=== PATIENT | female | born 1950 ===

== ENCOUNTER 2017-11-24 20:54 | Inpatient (IN) | payer MEDICARE, OTHER ==
[~2017-11-24] VITALS: Ht 149.9 cm; Wt 83.6 kg
--- NOTE | 2017-11-24 21:15 | NUR ---
RECEIVED PATIENT VIA GURNEY. UPON ARRIVAL TO FLOOR, PATIENT IS CRYING AND UPSET DUE TO THE DELAY OF ARRIVAL TO THE HOSPITAL. DAUGHTER IS PRESENT AT BEDSIDE. PATIENT IS A/O X4. KOSOVAN/FARSI SPEAKING ONLY AND IS ABLE TO MAKE SIMPLE NEEDS KNOWN, BUT REQUIRES PYROTECHNICS PRESS TENDER FOR DETAILED INFORMATION. DENIES PAIN OR DISCOMFORT. PLACED ON O2 2L NC SATING 99%. NO RESP. DISTRESS NOTED. DENIES ANY SOB AT THIS TIME, BUT DOES TEND TO BECOME SOB WITH EXCESSIVE ACTIVITY. BP 103/35. WILL RECHECK AND CONTINUE TO MONITOR. ALL OTHER VSS. ORIENTED PATIENT TO ROOM AND CALL LIGHT. CALL LIGHT IN REACH. ALL NEEDS ATTENDED, WILL CONTINUE TO MONITOR AND ASSESS.
[2017-11-24 21:30] VITALS: BP 103/35
[2017-11-24] MEDS ORDERED: LISI2.5T2 PO (21:41)
[2017-11-24] MEDS ORDERED: BISA-79 RC (21:41)
[2017-11-24] MEDS ORDERED: GABA-532 PO (21:41)
[2017-11-24] MEDS ORDERED: LIDO30AD10 TD (21:41)
[2017-11-24] MEDS ORDERED: METF10004 PO (21:41)
[2017-11-24] MEDS ORDERED: PRED20TA PO (21:41)
[2017-11-24] MEDS ORDERED: ZOLP5TAB2 PO (21:41)
[2017-11-24] MEDS ORDERED: LACT1CAP57 PO (21:41)
[2017-11-24] MEDS ORDERED: SIMV20TA6 PO (21:41)
[2017-11-24] MEDS ORDERED: SUCR1TAB PO (21:41)
[2017-11-24] MEDS ORDERED: SENN1TAB33 PO (21:41)
[2017-11-24] MEDS ORDERED: INSU100V7 SQ (21:41)
[2017-11-24] MEDS ORDERED: PANT40TA2 PO (21:41)
[2017-11-24] MEDS ORDERED: LEVO500T90 PO (21:41)
[2017-11-24] MEDS ORDERED: CARV3.122 PO (21:41)
[2017-11-24] MEDS ORDERED: FERR325T28 PO (21:41)
[2017-11-24] MEDS ORDERED: ACET-2154 PO (21:41)
[2017-11-24] MEDS ORDERED: Z GUARD REMEDY PASTE 57 GM TUBE TOP PRN (22:00)
[2017-11-24] MEDS ORDERED: DEXTROSE 50% 50 ML DISP.SYRIN IV PRN (22:30)
[2017-11-24] MEDS: BLOOD SUGAR DIAGNOSTIC 1 EACH STRIP VI SCH ×2 (22:30→23:38)
--- NOTE | 2017-11-24 22:30 | NUR ---
PATIENTS BLOOD SUGAR, 164. PATIENT REFUSED INSULIN TONIGHT, STATING SHE HAS NOT EATEN MUCH TODAY AND DOES NOT WANT HER SUGAR TO DROP. WILL CONTINUE TO MONITOR.
[2017-11-24] MEDS: INSULIN REGULAR, HUMAN 300 UNIT/3 ML VIAL SQ PRN (22:37)
[2017-11-24] MEDS ORDERED: BISACODYL 5 MG TABLET.DR PO PRN (22:45)
[2017-11-24] MEDS ORDERED: ACETAMINOPHEN 325 MG TABLET PO ONE (23:00)
[2017-11-24] MEDS: ZOLPIDEM 5 MG TABLET PO PRN (23:39)
--- NOTE | 2017-11-24 23:40 | NUR ---
PATIENT AWAKE IN BED. C/O INSOMNIA. PATIENT GIVEN AMBIEN 5MG PO PRN FOR SLEEP. RECHECKED BLOOD SUGAR, REQUESTED PER PATIENT ANS RECEIVED 159. ALSO RECHECKED PATIENTS BLOOD PRESSURE 140/50. ALL OTHER VSS. PATIENT MADE COMFORTABLE IN BED. BED ALARM ON. CALL LIGHT IN REACH. ALL NEEDS ATTENDED. WILL CONTINUE TO MONITOR.
[2017-11-24 23:44] VITALS: BP 140/50
--- NOTE | 2017-11-25 01:00 | NUR ---
PATIENT ASLEEP IN BED. SLEEPING WELL. BED ALARM ON. ALL NEEDS ATTENDED. WILL CONTINUE TO MONITOR.
--- NOTE | 2017-11-25 05:49 | NUR ---
PATIENT ASLEEP IN BED. EASILY AROUSABLE. SLEPT WELL THROUGHOUT THE NIGHT. NO C/O PAIN AT THIS TIME. CALL LIGHT IN REACH. ALL NEEDS ATTENDED. WILL CONTINUE TO MONITOR.
[2017-11-25] MEDS: BLOOD SUGAR DIAGNOSTIC 1 EACH STRIP VI SCH ×4 (06:37→20:46)
--- NOTE | 2017-11-25 07:22 | NUR ---
Patient noted sitting up in chair reading a newspaper, no complaints of pain at this time, no signs of distress noted, call light in reach, all needs met at this time
[2017-11-25] MEDS: LACTOBACILLUS RHAMNOSUS GG 1 EACH CAPSULE PO SCH ×2 (08:09→16:49)
[2017-11-25] MEDS: METFORMIN HCL 500 MG TABLET PO SCH ×2 (08:10→17:00)
[2017-11-25] MEDS: ACETAMINOPHEN 325 MG TABLET PO SCH ×3 (08:10→16:49)
[2017-11-25] MEDS: SUCRALFATE 1 G TABLET PO SCH ×4 (08:10→20:46)
[2017-11-25] MEDS: predniSONE 20 MG TABLET PO SCH (08:10)
[2017-11-25] MEDS: PANTOPRAZOLE SODIUM 40 MG TABLET.DR PO SCH ×2 (08:10→16:49)
[2017-11-25] MEDS: FERROUS SULFATE 325 MG TABEC PO SCH (08:10)
[2017-11-25] MEDS: LIDOCAINE 5% PATCH TD SCH (08:13)
[2017-11-25] MEDS: GABAPENTIN 100 MG CAPSULE PO SCH ×3 (08:13→16:49)
[2017-11-25] MEDS: CARVEDILOL 3.125 MG TABLET PO SCH ×2 (08:14→16:57)
[2017-11-25] MEDS: LISINOPRIL 5 MG TABLET PO SCH (08:14)
[2017-11-25] MEDS: INSULIN REGULAR, HUMAN 300 UNIT/3 ML VIAL SQ PRN ×4 (08:23→20:47)
[2017-11-25 08:42] VITALS: BP 112/32
[2017-11-25] MEDS: LEVOFLOXACIN 500 MG TABLET PO SCH (12:08)
[2017-11-25 15:49] VITALS: BP 108/48
--- NOTE | 2017-11-25 18:43 | NUR ---
Patient continues on Levaquin with no signs or symptoms of adverse reaction noted, all needs met, no signs of distress this shift
--- NOTE | 2017-11-25 19:45 | NUR ---
RECEIVED PATIENT AWAKE IN BED WITH DAUGHTER AT BEDSIDE. PATIENT IS A/O X4. NORWEGIAN/FARSI SPEAKING BUT ABLE TO MAKE NEEDS KNOWN. DENIES PAIN. ON O2 2L NC SATING 99%. DENIES SOB. CALL LIGHT IN REACH. ALL NEEDS ATTENDED. WILL CONTINUE TO MONITOR.
[2017-11-25 20:41] VITALS: BP 97/45
[2017-11-25] MEDS: SIMVASTATIN 20 MG TABLET PO SCH (20:46)
[2017-11-25] MEDS: ZOLPIDEM 5 MG TABLET PO PRN (20:47)
[2017-11-25] MEDS: SENNOSIDES/DOCUSATE SODIUM TABLET PO SCH (20:53)
[2017-11-25] MEDS ORDERED: INSULIN GLARGINE,HUM 300 UNITS/3 ML CARTRIDGE SQ SCH (21:00)
[2017-11-26 05:30] VITALS: BP 118/60
[2017-11-26] MEDS: BLOOD SUGAR DIAGNOSTIC 1 EACH STRIP VI SCH ×4 (06:35→21:00)
--- NOTE | 2017-11-26 07:14 | NUR ---
Patient noted sleeping in chair, call light in reach, walker in reach, no facial cues of pain noted, no signs of distress noted, all needs met at this time.
[2017-11-26 08:01] LABS: BASOPHILS # (AUTO) 0.1 K/uL (0.0-8.0); BASOPHILS % (AUTO) 0.5 % (0.0-2.0); EOSINOPHILS # (AUTO) 0.1 K/uL (0.0-0.7); EOSINOPHILS % (AUTO) 0.9 % (0.0-7.0); HEMATOCRIT 29.6 % (31.2-41.9); LYMPHOCYTES % (AUTO) 15.8 % (20.5-51.5); MEAN CORPUSCULAR HEMOGLOBIN 28.8 uug (24.7-32.8); MEAN CORPUSCULAR HGB CONC 34 g/dL (32.3-35.6); MONOCYTES # (AUTO) 1.1 K/uL (2.0-10.0); MONOCYTES % (AUTO) 8.6 % (0.0-11.0); NEUTROPHILS # (AUTO) 9.4 K/uL (1.8-8.9); NEUTROPHILS % (AUTO) 74.2 % (38.5-71.5); PLATELET COUNT (AUTO) 213 K/uL (179-408); RED BLOOD CELL COUNT(AUTO) 3.49 MIL/uL (3.63-4.92); WHITE BLOOD COUNT (AUTO) 12.7 K/uL (3.8-11.8)
[2017-11-26] MEDS: METFORMIN HCL 500 MG TABLET PO SCH ×2 (08:14→17:07)
[2017-11-26] MEDS: ACETAMINOPHEN 325 MG TABLET PO SCH ×3 (08:14→17:07)
[2017-11-26] MEDS: FERROUS SULFATE 325 MG TABEC PO SCH (08:14)
[2017-11-26] MEDS: LACTOBACILLUS RHAMNOSUS GG 1 EACH CAPSULE PO SCH ×2 (08:14→17:07)
[2017-11-26] MEDS: PANTOPRAZOLE SODIUM 40 MG TABLET.DR PO SCH ×2 (08:14→17:07)
[2017-11-26] MEDS: SUCRALFATE 1 G TABLET PO SCH ×4 (08:14→20:53)
[2017-11-26] MEDS: GABAPENTIN 100 MG CAPSULE PO SCH ×3 (08:15→17:07)
[2017-11-26] MEDS: predniSONE 20 MG TABLET PO SCH (08:15)
[2017-11-26] MEDS: LIDOCAINE 5% PATCH TD SCH (08:15)
[2017-11-26] MEDS: LISINOPRIL 5 MG TABLET PO SCH (08:16)
[2017-11-26] MEDS: CARVEDILOL 3.125 MG TABLET PO SCH ×2 (08:16→17:10)
[2017-11-26] MEDS: INSULIN REGULAR, HUMAN 300 UNIT/3 ML VIAL SQ PRN ×3 (08:21→17:21)
[2017-11-26 08:29] VITALS: BP 126/61
[2017-11-26 08:31] LABS: THYROID STIMULATING HORMONE 1.003 mIU/mL (0.358-3.740)
[2017-11-26 08:50] LABS: BILIRUBIN,TOTAL 0.6 mg/dL (0.2-1.0); CREATININE 0.7 mg/dL (0.6-1.3); MAGNESIUM 1.3 mg/dL (1.8-2.4); PHOSPHOROUS 1.7 mg/dL (2.5-4.9); POTASSIUM 3.7 mmol/L (3.5-5.1); TOTAL PROTEIN, SERUM 5.7 g/dL (6.4-8.2)
[2017-11-26] MEDS: LEVOFLOXACIN 500 MG TABLET PO SCH (12:13)
[2017-11-26] MEDS ORDERED: NEUTRA PHOS PACKET PO ONE (15:15)
[2017-11-26] MEDS ORDERED: LOPERAMIDE HCL 2 MG CAPSULE PO PRN (18:45)
--- NOTE | 2017-11-26 19:26 | NUR ---
PATIENT COMPLAINTS OF LOOSE STOOL, MD CABRERA NOTIFIED WITH ORDERS FOR IMODIUM 2 MG Q4 PRN
--- NOTE | 2017-11-26 19:30 | NUR ---
Patient received at bed awake, alert, and oriented x4. No acute distress or SOB was noted. Able to make needs known. No complain of pain. Call light and personal belonging within reach. continue to monitor.
[2017-11-26 20:21] VITALS: BP 120/67
[2017-11-26] MEDS: SENNOSIDES/DOCUSATE SODIUM TABLET PO SCH (20:53)
[2017-11-26] MEDS: SIMVASTATIN 20 MG TABLET PO SCH (20:54)
[2017-11-26] MEDS: INSULIN GLARGINE,HUM 300 UNITS/3 ML CARTRIDGE SQ SCH (20:58)
--- NOTE | 2017-11-26 21:00 | NUR ---
Patient complained of diarrhea, Imodium 2GM was given. Due medication given as ordered, Accuchek was done, BS was 154, insulin coverage done. Patient requested for sleep pill, Zolpidem 5 mg was given as ordered.
[2017-11-26] MEDS: ZOLPIDEM 5 MG TABLET PO PRN (21:13)
--- NOTE | 2017-11-27 05:41 | NUR ---
End of shift note patient was awake and alert until 4am that be able to sleep without difficulty. No acute distress or SOB throughout the shift. No change in LOC or mentation. Remained stable throughout the shift. Med given as ordered. All needs attended promptly. Call light and personal belongings within reach. Bed alarm and bed brake on for safety precaution. Will endorse accordingly to incoming shift for continuity of care.
[2017-11-27 06:12] VITALS: BP 112/52
[2017-11-27] MEDS: SUCRALFATE 1 G TABLET PO SCH ×4 (06:40→20:28)
[2017-11-27] MEDS: BLOOD SUGAR DIAGNOSTIC 1 EACH STRIP VI SCH ×4 (06:44→20:34)
--- NOTE | 2017-11-27 07:32 | NUR ---
PATIENT NOTED RESTING IN BED WITH EYES CLOSED, NO FACIAL CUES OF PAIN NOTED, NO SIGNS OF DISTRESS NOTED, CALL LIGHT IN REACH, BED LOCKED AND IN LOWEST POSITION, , X 2 BED RAILS, ALL NEEDS MET AT THIS TIME
[2017-11-27 07:35] VITALS: BP 122/52
[2017-11-27] MEDS: LACTOBACILLUS RHAMNOSUS GG 1 EACH CAPSULE PO SCH ×2 (08:18→17:04)
[2017-11-27] MEDS: predniSONE 20 MG TABLET PO SCH (08:20)
[2017-11-27] MEDS: ACETAMINOPHEN 325 MG TABLET PO SCH ×3 (08:20→17:04)
[2017-11-27] MEDS: METFORMIN HCL 500 MG TABLET PO SCH ×2 (08:20→17:04)
[2017-11-27] MEDS: CARVEDILOL 3.125 MG TABLET PO SCH ×2 (08:21→17:00)
[2017-11-27] MEDS: GABAPENTIN 100 MG CAPSULE PO SCH ×3 (08:22→17:04)
[2017-11-27] MEDS: FERROUS SULFATE 325 MG TABEC PO SCH (08:22)
[2017-11-27] MEDS: PANTOPRAZOLE SODIUM 40 MG TABLET.DR PO SCH ×2 (08:22→17:04)
[2017-11-27] MEDS: LIDOCAINE 5% PATCH TD SCH (08:24)
[2017-11-27] MEDS: LISINOPRIL 5 MG TABLET PO SCH (08:24)
[2017-11-27] MEDS: INSULIN REGULAR, HUMAN 300 UNIT/3 ML VIAL SQ PRN ×4 (08:25→20:33)
--- NOTE | 2017-11-27 11:41 | NUR ---
I agree Addendum: 11/27/17 at 1142 by PREET ORTIZ OT Amended: Links added.
--- NOTE | 2017-11-27 11:41 | NUR ---
I agree Addendum: 11/27/17 at 1141 by PREET ORTIZ OT Amended: Links added.
--- NOTE | 2017-11-27 11:42 | NUR ---
I agree Addendum: 11/27/17 at 1143 by PREET ORTIZ OT Amended: Links added.
[2017-11-27] MEDS: LEVOFLOXACIN 500 MG TABLET PO SCH (12:31)
[2017-11-27] MEDS: SENNOSIDES/DOCUSATE SODIUM TABLET PO SCH (20:26)
[2017-11-27] MEDS: SIMVASTATIN 20 MG TABLET PO SCH (20:28)
[2017-11-27] MEDS: INSULIN GLARGINE,HUM 300 UNITS/3 ML CARTRIDGE SQ SCH (20:30)
[2017-11-27 20:34] VITALS: BP 120/60
[2017-11-27] MEDS: ZOLPIDEM 5 MG TABLET PO PRN (20:42)
--- NOTE | 2017-11-27 21:39 | NUR ---
Patient received at bed awake, alert, and oriented x4. No acute distress or SOB was noted. Has O2 2 Lit through nasal canula. Able to make needs known. No complain of pain. Call light and personal belonging within reach. continue to monitor.
[2017-11-28] MEDS: SUCRALFATE 1 G TABLET PO SCH ×5 (06:09→21:13)
--- NOTE | 2017-11-28 06:25 | NUR ---
End of shift note patient was able to sleep without difficulty. No acute distress or SOB throughout the shift. No change in LOC or mentation. Remained stable throughout the shift. Med given as ordered. All needs attended promptly. Call light and personal belongings within reach. Bed alarm and bed brake on for safety precaution. Patient has pulmonary appointment for PET scan today. Will endorse accordingly to incoming shift for continuity of care.
[2017-11-28] MEDS: BLOOD SUGAR DIAGNOSTIC 1 EACH STRIP VI SCH ×4 (06:33→21:35)
[2017-11-28 08:00] VITALS: BP 108/57
[2017-11-28] MEDS: LACTOBACILLUS RHAMNOSUS GG 1 EACH CAPSULE PO SCH ×2 (08:58→17:02)
[2017-11-28] MEDS: METFORMIN HCL 500 MG TABLET PO SCH ×2 (08:58→17:06)
[2017-11-28] MEDS: GABAPENTIN 100 MG CAPSULE PO SCH ×3 (08:59→17:04)
[2017-11-28] MEDS: FERROUS SULFATE 325 MG TABEC PO SCH (08:59)
[2017-11-28] MEDS: ACETAMINOPHEN 325 MG TABLET PO SCH ×3 (08:59→17:02)
[2017-11-28] MEDS: LISINOPRIL 5 MG TABLET PO SCH (08:59)
[2017-11-28] MEDS: LIDOCAINE 5% PATCH TD SCH (09:00)
[2017-11-28] MEDS: CARVEDILOL 3.125 MG TABLET PO SCH ×2 (09:00→17:00)
[2017-11-28] MEDS: PANTOPRAZOLE SODIUM 40 MG TABLET.DR PO SCH ×2 (09:00→17:04)
[2017-11-28] MEDS: predniSONE 20 MG TABLET PO SCH (09:00)
[2017-11-28] MEDS: INSULIN REGULAR, HUMAN 300 UNIT/3 ML VIAL SQ PRN ×3 (11:59→21:24)
--- NOTE | 2017-11-28 13:29 | NUR ---
INTERDISCIPLINARY TEAM CONFERENCE
[2017-11-28 16:16] VITALS: BP 106/61
[2017-11-28 18:03] LABS: *BILIRUBIN,URIN NEGATIVE (NEGATIVE); *BLOOD, URINE NEGATIVE (NEGATIVE); *CLARITY,URINE CLEAR (CLEAR); *COLOR,URINE YELLOW (YELLOW); *KETONES,URINE NEGATIVE (NEGATIVE); *PROTEIN,URINE NEGATIVE (NEGATIVE); *UROBILINOGEN,URINE 0.2 E.U./dl (NORMAL); LEUKOCYTE ESTERASE ,URINE NEGATIVE (NEGATIVE); NITRITE, URINE NEGATIVE (NEGATIVE); UGLUCOSE NEGATIVE (NEGATIVE)
[2017-11-28 18:16] LABS: SQUAMOUS EPITHELIAL CELL,UR FEW /HPF (NONE SEEN); WBC,URINE 0-3 /HPF (0-3)
[2017-11-28 18:17] LABS: MUCUS,URINE FEW /LPF (0-FEW)
[2017-11-28 19:30] VITALS: BP_SYST 105; BP_SYST 137; BP_DIAS 45; BP_DIAS 68
[2017-11-28] MEDS: SIMVASTATIN 20 MG TABLET PO SCH (21:13)
[2017-11-28] MEDS: SENNOSIDES/DOCUSATE SODIUM TABLET PO SCH (21:14)
[2017-11-28] MEDS: INSULIN GLARGINE,HUM 300 UNITS/3 ML CARTRIDGE SQ SCH (21:34)
[2017-11-29] MEDS: SUCRALFATE 1 G TABLET PO SCH ×4 (06:34→20:46)
[2017-11-29] MEDS: BLOOD SUGAR DIAGNOSTIC 1 EACH STRIP VI SCH ×4 (06:37→20:50)
[2017-11-29 08:22] VITALS: BP 119/55
--- NOTE | 2017-11-29 09:21 | NUR ---
Received patient awake, sitting on the chair, alert and orientedx4. farsi speaking. able to verbalize needs. not in distress. no complaint of pain/discomfort. will continue monitor
[2017-11-29] MEDS: CARVEDILOL 3.125 MG TABLET PO SCH ×2 (09:49→16:23)
[2017-11-29] MEDS: predniSONE 20 MG TABLET PO SCH (09:51)
[2017-11-29] MEDS: GABAPENTIN 100 MG CAPSULE PO SCH ×3 (09:52→16:15)
[2017-11-29] MEDS: METFORMIN HCL 500 MG TABLET PO SCH ×2 (09:55→16:23)
[2017-11-29] MEDS: FERROUS SULFATE 325 MG TABEC PO SCH (09:56)
[2017-11-29] MEDS: LACTOBACILLUS RHAMNOSUS GG 1 EACH CAPSULE PO SCH ×2 (09:56→16:23)
[2017-11-29] MEDS: PANTOPRAZOLE SODIUM 40 MG TABLET.DR PO SCH ×2 (09:57→16:16)
[2017-11-29] MEDS: LIDOCAINE 5% PATCH TD SCH (09:59)
[2017-11-29] MEDS: LISINOPRIL 5 MG TABLET PO SCH (09:59)
[2017-11-29] MEDS: ACETAMINOPHEN 325 MG TABLET PO SCH ×3 (09:59→16:16)
[2017-11-29 15:52] VITALS: BP 110/52
[2017-11-29 19:30] VITALS: BP 115/57
--- NOTE | 2017-11-29 19:33 | NUR ---
ECG result dated 11/28/17 relayed to cardio electronic sensing equipment assembler with no new order. will continue monitor
[2017-11-29] MEDS: SIMVASTATIN 20 MG TABLET PO SCH (20:46)
[2017-11-29] MEDS: SENNOSIDES/DOCUSATE SODIUM TABLET PO SCH (20:46)
[2017-11-29] MEDS: INSULIN REGULAR, HUMAN 300 UNIT/3 ML VIAL SQ PRN (20:52)
[2017-11-29] MEDS: INSULIN GLARGINE,HUM 300 UNITS/3 ML CARTRIDGE SQ SCH (20:55)
--- NOTE | 2017-11-29 21:00 | NUR ---
PATIENT AWAKE ON BED, NO C/O OF PAIN OR ANY DISCOMFORT , USING O2 @ 2LPM VIA NC. BS CHECK DONE WITH RESULT 228. INSULIN ADMINISTERED ORDERED.
[2017-11-30] MEDS: BLOOD SUGAR DIAGNOSTIC 1 EACH STRIP VI SCH ×4 (06:35→20:56)
[2017-11-30] MEDS: SUCRALFATE 1 G TABLET PO SCH ×4 (06:35→20:53)
--- NOTE | 2017-11-30 06:44 | NUR ---
PATIENT INTERMITTENTLY SLEEPING, EASILY AROUSBLE TO VERBAL RESPONSE. NO SOB. USING O2 @ 2PM VIS NC . KEPT FOOT ELEVATED ON BED . BS CHECK DONE WITH THE RESULT 58. PATIENT RESPONSIVE AND A OX4. ORANGE JUICE GIVEN. WILL RECHECK LATER
[2017-11-30 06:48] LABS: BASOPHILS # (AUTO) 0.1 K/uL (0.0-8.0); BASOPHILS % (AUTO) 0.5 % (0.0-2.0); EOSINOPHILS # (AUTO) 0.1 K/uL (0.0-0.7); EOSINOPHILS % (AUTO) 0.9 % (0.0-7.0); HEMATOCRIT 30.6 % (31.2-41.9); HEMOGLOBIN 10.1 g/dL (10.9-14.3); LYMPHOCYTES # (AUTO) 3.1 K/uL (20.0-40.0); MEAN CORPUSCULAR HEMOGLOBIN 28.3 uug (24.7-32.8); MEAN CORPUSCULAR HGB CONC 33 g/dL (32.3-35.6); MEAN CORPUSCULAR VOLUME 85.3 fL (75.5-95.3); MONOCYTES # (AUTO) 0.8 K/uL (2.0-10.0); MONOCYTES % (AUTO) 7.1 % (0.0-11.0); NEUTROPHILS # (AUTO) 6.9 K/uL (1.8-8.9); NEUTROPHILS % (AUTO) 63.5 % (38.5-71.5); PLATELET COUNT (AUTO) 275 K/uL (179-408); RED BLOOD CELL COUNT(AUTO) 3.58 MIL/uL (3.63-4.92); WHITE BLOOD COUNT (AUTO) 10.9 K/uL (3.8-11.8)
[2017-11-30 06:58] VITALS: BP 107/51
[2017-11-30 06:58] LABS: BILIRUBIN,TOTAL 0.4 mg/dL (0.2-1.0); CREATININE 0.8 mg/dL (0.6-1.3); PHOSPHOROUS 1.7 mg/dL (2.5-4.9); POTASSIUM 3.8 mmol/L (3.5-5.1); TOTAL PROTEIN, SERUM 5.9 g/dL (6.4-8.2)
[2017-11-30 06:59] LABS: MAGNESIUM 1.2 mg/dL (1.8-2.4)
--- NOTE | 2017-11-30 07:01 | NUR ---
Received call from lab for critical result magnesium 1.2 . Will notify MD. Continue to monitor.
[2017-11-30 07:15] VITALS: BP 120/57
--- NOTE | 2017-11-30 07:20 | NUR ---
LEFT MESSAGE FOR DR. CABRERA REGARDING THE CRITICAL LAB VALUE MAGNESIUM 1.2.
--- NOTE | 2017-11-30 07:26 | NUR ---
RECHECKED BS WITH RESULT 97
--- NOTE | 2017-11-30 07:43 | NUR ---
Endorsed to day shift charge nurse about critical lab result. notified. Awaiting call back.
[2017-11-30] MEDS: PANTOPRAZOLE SODIUM 40 MG TABLET.DR PO SCH ×2 (08:29→17:22)
[2017-11-30] MEDS: GABAPENTIN 100 MG CAPSULE PO SCH ×3 (08:29→17:22)
[2017-11-30] MEDS: LACTOBACILLUS RHAMNOSUS GG 1 EACH CAPSULE PO SCH ×2 (08:29→17:22)
[2017-11-30] MEDS: FERROUS SULFATE 325 MG TABEC PO SCH (08:29)
[2017-11-30] MEDS: METFORMIN HCL 500 MG TABLET PO SCH ×2 (08:29→17:22)
[2017-11-30] MEDS: CARVEDILOL 3.125 MG TABLET PO SCH ×2 (08:29→17:00)
[2017-11-30] MEDS: ACETAMINOPHEN 325 MG TABLET PO SCH ×3 (08:29→17:22)
[2017-11-30] MEDS: predniSONE 20 MG TABLET PO SCH (08:30)
[2017-11-30] MEDS: LIDOCAINE 5% PATCH TD SCH (08:30)
[2017-11-30] MEDS: LISINOPRIL 5 MG TABLET PO SCH (08:31)
--- NOTE | 2017-11-30 09:35 | NUR ---
Patient noted sitting up on side of the bed, no complaints of pain at this time, no signs of distress, call light in reach, bed locked and in lowest position, all needs met at this time
[2017-11-30] MEDS: INSULIN REGULAR, HUMAN 300 UNIT/3 ML VIAL SQ PRN ×2 (12:03→17:26)
[2017-11-30] MEDS ORDERED: MAGNESIUM OXIDE 400 MG TABLET PO ONE (13:00)
[2017-11-30] MEDS ORDERED: NEUTRA PHOS PACKET PO ONE (15:30)
[2017-11-30 16:14] VITALS: BP 122/53
[2017-11-30 19:30] VITALS: BP 117/82
[2017-11-30] MEDS ORDERED: HYDROCORTISONE 1% CREAM 30 GM TUBE TP ONE (19:45)
--- NOTE | 2017-11-30 20:45 | NUR ---
Patient reported feeling pain underneath left breast. Per patient felt like "stinging, burning". Upon assessment noted with under-breast rash. Also C/O left foot itching. Upon assessment of left foot, no noted redness or irritation. Dr. Jimenez in to see patient, made aware with new orders of Hydrocortisone 1% topical cream BID. Orders noted and carried out. Pictures taken and placed in chart. Safety maintained. Call light within reach. Will continue to monitor.
[2017-11-30] MEDS: SIMVASTATIN 20 MG TABLET PO SCH (20:54)
[2017-11-30] MEDS: INSULIN GLARGINE,HUM 300 UNITS/3 ML CARTRIDGE SQ SCH (20:54)
[2017-11-30] MEDS: SENNOSIDES/DOCUSATE SODIUM TABLET PO SCH (20:54)
[2017-12-01] MEDS: BLOOD SUGAR DIAGNOSTIC 1 EACH STRIP VI SCH ×4 (06:06→20:24)
[2017-12-01] MEDS: SUCRALFATE 1 G TABLET PO SCH ×4 (06:57→20:16)
[2017-12-01 08:02] LABS: BASOPHILS # (AUTO) 0.1 K/uL (0.0-8.0); BASOPHILS % (AUTO) 0.7 % (0.0-2.0); EOSINOPHILS # (AUTO) 0.1 K/uL (0.0-0.7); EOSINOPHILS % (AUTO) 0.7 % (0.0-7.0); HEMATOCRIT 29.1 % (31.2-41.9); HEMOGLOBIN 9.7 g/dL (10.9-14.3); LYMPHOCYTES # (AUTO) 1.9 K/uL (20.0-40.0); MEAN CORPUSCULAR HEMOGLOBIN 28.4 uug (24.7-32.8); MEAN CORPUSCULAR HGB CONC 33 g/dL (32.3-35.6); MONOCYTES # (AUTO) 0.7 K/uL (2.0-10.0); MONOCYTES % (AUTO) 7.1 % (0.0-11.0); NEUTROPHILS # (AUTO) 6.5 K/uL (1.8-8.9); NEUTROPHILS % (AUTO) 70.5 % (38.5-71.5); PLATELET COUNT (AUTO) 237 K/uL (179-408); RED BLOOD CELL COUNT(AUTO) 3.42 MIL/uL (3.63-4.92); WHITE BLOOD COUNT (AUTO) 9.2 K/uL (3.8-11.8)
[2017-12-01] MEDS: FERROUS SULFATE 325 MG TABEC PO SCH (08:02)
[2017-12-01] MEDS: GABAPENTIN 100 MG CAPSULE PO SCH ×3 (08:02→16:50)
[2017-12-01] MEDS: ACETAMINOPHEN 325 MG TABLET PO SCH ×3 (08:02→16:51)
[2017-12-01] MEDS: predniSONE 20 MG TABLET PO SCH (08:02)
[2017-12-01] MEDS: PANTOPRAZOLE SODIUM 40 MG TABLET.DR PO SCH ×2 (08:02→16:51)
[2017-12-01] MEDS: METFORMIN HCL 500 MG TABLET PO SCH ×2 (08:03→16:51)
[2017-12-01] MEDS: LISINOPRIL 5 MG TABLET PO SCH (08:03)
[2017-12-01] MEDS: CARVEDILOL 3.125 MG TABLET PO SCH ×2 (08:04→16:52)
[2017-12-01] MEDS: LIDOCAINE 5% PATCH TD SCH (08:04)
[2017-12-01] MEDS: HYDROCORTISONE 1% CREAM 30 GM TUBE TP SCH ×2 (08:05→16:52)
[2017-12-01] MEDS: LACTOBACILLUS RHAMNOSUS GG 1 EACH CAPSULE PO SCH ×2 (08:06→16:50)
[2017-12-01 08:27] LABS: CREATININE 0.7 mg/dL (0.6-1.3); MAGNESIUM 1.3 mg/dL (1.8-2.4); PHOSPHOROUS 1.9 mg/dL (2.5-4.9); POTASSIUM 4.1 mmol/L (3.5-5.1)
[2017-12-01 08:30] VITALS: BP 121/74
[2017-12-01] MEDS: INSULIN REGULAR, HUMAN 300 UNIT/3 ML VIAL SQ PRN ×2 (12:07→20:29)
[2017-12-01] MEDS ORDERED: MAGNESIUM OXIDE 400 MG TABLET PO ONE (14:00)
[2017-12-01] MEDS ORDERED: NEUTRA PHOS PACKET PO ONE (17:00)
[2017-12-01 19:30] VITALS: BP 117/51
--- NOTE | 2017-12-01 19:30 | NUR ---
PT IN ROOM ALERT AWAKE IN WITH IN NO ACUTE DISTRESS. STATES SHE HAS SOME PERIODS OF SOB UPON EXERTION. DAUGHTER AT BEDSIDE AWARE. MAINTAINING OXYGEN AT 2L/MIN. AWAITING ORDERS FROM DR ARANDA FOR ROUTINE HS ORDERS. WILL CONTINUE TO MONITOR. ENCOURAGED DEEP BREATHING EXERCISES AND TO USE CALL LIGHT FOR ASSISTANCE WHEN NEEDED.
[2017-12-01] MEDS: SENNOSIDES/DOCUSATE SODIUM TABLET PO SCH (20:17)
[2017-12-01] MEDS: SIMVASTATIN 20 MG TABLET PO SCH (20:17)
[2017-12-01] MEDS: INSULIN GLARGINE,HUM 300 UNITS/3 ML CARTRIDGE SQ SCH (20:30)
[2017-12-01] MEDS ORDERED: DOXEPIN 10 MG CAPSULE PO SCH (21:00)
--- NOTE | 2017-12-01 21:15 | NUR ---
PT NOTED WITH SOME ANXIETY AND C/O PERIODS OF DYSPNEA BUT NO CHEST PAIN. PT ENCOURAGED DEEP BREATHING AND TO SIT UP IN CHAIR. OXYGEN NOTED 98% VIA N/C WITH 2L/MIN. DR UGALDE MADE AWARE. CXR STAT WAS ORDERED. NOTED AND CARRIED OUT. DAUGHTER REGINA AWARE.
[2017-12-02] MEDS ORDERED: TRAZODONE 100 MG TABLET PO ONE
--- NOTE | 2017-12-02 | NUR ---
PT IN ROOM ALERT AWAKE WITH OXYGEN SAT MAINTAINING 97% VIA 2L/MIN N/C. WILL CONTINUE TO MONITOR. LEE OFFERED D/T PT C/O NO SLEEP.
[2017-12-02] MEDS: ZOLPIDEM 5 MG TABLET PO PRN ×2 (00:30→20:55)
[2017-12-02] MEDS: OXYCODONE/APAP 5-325 MG TABLET PO PRN ×3 (04:02→17:21)
[2017-12-02] MEDS: SUCRALFATE 1 G TABLET PO SCH ×4 (06:30→20:56)
--- NOTE | 2017-12-02 06:30 | NUR ---
PT ABLE TO SLEEP LATE 0400 AFTER RECEIVING PERCOCET D/T PAIN TO LEFT FOOT AND LOW BACK. NO NO S/S OF RESP DISTRESS. DR UGALDE IS AWARE OF RECENT CXR RESULTS. PT REMAIN SEATED SLEEPING IN CHAIR AT THIS TIME. WILL CONTINUE TO MONITOR.
[2017-12-02] MEDS: BLOOD SUGAR DIAGNOSTIC 1 EACH STRIP VI SCH ×4 (06:31→20:58)
[2017-12-02 08:38] VITALS: BP 102/52
[2017-12-02] MEDS: LACTOBACILLUS RHAMNOSUS GG 1 EACH CAPSULE PO SCH ×2 (08:54→17:16)
[2017-12-02] MEDS: GABAPENTIN 100 MG CAPSULE PO SCH ×3 (08:54→17:19)
[2017-12-02] MEDS: FERROUS SULFATE 325 MG TABEC PO SCH (08:54)
[2017-12-02] MEDS: METFORMIN HCL 500 MG TABLET PO SCH ×2 (08:54→17:18)
[2017-12-02] MEDS: CARVEDILOL 3.125 MG TABLET PO SCH ×2 (08:57→17:19)
[2017-12-02] MEDS: predniSONE 20 MG TABLET PO SCH (08:58)
[2017-12-02] MEDS: ACETAMINOPHEN 325 MG TABLET PO SCH ×3 (09:00→17:21)
[2017-12-02] MEDS: LIDOCAINE 5% PATCH TD SCH (09:00)
[2017-12-02] MEDS: PANTOPRAZOLE SODIUM 40 MG TABLET.DR PO SCH ×2 (09:01→17:19)
[2017-12-02] MEDS: HYDROCORTISONE 1% CREAM 30 GM TUBE TP SCH ×2 (09:01→17:22)
[2017-12-02] MEDS: LISINOPRIL 5 MG TABLET PO SCH (09:02)
--- NOTE | 2017-12-02 11:39 | NUR ---
WOUND CARE CONSULT: PT PRESENTS WITH RED RASH TO BREASTFOLDS, GROIN AND INNER BUTTOCKS AREAS, PRESENT ON ADMISSION. RECOMMENDATIONS MADE AND DISCUSSED WITH NURSING STAFF. PT IS INDEPENDENT WITH BED MOBILITY AND CONTINENT. WILL SEE PRN. CURRENT PATRICIA SCORE IS 19. MD IN AGREEMENT WITH PLAN OF CARE. Addendum: 12/02/17 at 1140 by RADHA RETANA RN Amended: Links added.
[2017-12-02] MEDS: INSULIN REGULAR, HUMAN 300 UNIT/3 ML VIAL SQ PRN ×2 (12:12→20:56)
--- NOTE | 2017-12-02 12:28 | NUR ---
I agree Addendum: 12/02/17 at 1229 by PREET ORTIZ OT Amended: Links added.
--- NOTE | 2017-12-02 12:28 | NUR ---
I agree Addendum: 12/02/17 at 1228 by PREET ORTIZ OT Amended: Links added.
[2017-12-02] MEDS: CLOTRIMAZOLE 1% CREAM 30 GM TUBE TOP SCH (17:22)
[2017-12-02 20:24] VITALS: BP 107/61
[2017-12-02] MEDS: SENNOSIDES/DOCUSATE SODIUM TABLET PO SCH (20:55)
[2017-12-02] MEDS: SIMVASTATIN 20 MG TABLET PO SCH (20:55)
[2017-12-02] MEDS: INSULIN GLARGINE,HUM 300 UNITS/3 ML CARTRIDGE SQ SCH (20:56)
[2017-12-02] MEDS ORDERED: TRAZODONE 100 MG TABLET PO SCH (21:00)
--- NOTE | 2017-12-03 04:39 | NUR ---
admitted for pleural effusion. aaox4 ambulates to the BR with walker. voiding freely. lungs diminished. on O2 @2L via nasal cannula. pulse ox 95% kept comfortable. denies any pain nor any discomfort. will monitor patient. fall precautions maintained. siderails up for safety. call maya within reach.
[2017-12-03 05:13] VITALS: BP 111/53
[2017-12-03] MEDS: SUCRALFATE 1 G TABLET PO SCH ×4 (06:30→20:27)
[2017-12-03] MEDS: BLOOD SUGAR DIAGNOSTIC 1 EACH STRIP VI SCH ×4 (06:33→20:20)
--- NOTE | 2017-12-03 07:53 | NUR ---
Patient noted sitting up in chair, complains of shoulder pain will give scheduled pain patch, no signs of distress noted, call light in reach, all needs met at this time
[2017-12-03 08:16] VITALS: BP 97/59
[2017-12-03] MEDS: LACTOBACILLUS RHAMNOSUS GG 1 EACH CAPSULE PO SCH ×2 (08:18→17:17)
[2017-12-03] MEDS: LIDOCAINE 5% PATCH TD SCH (08:18)
[2017-12-03] MEDS: FERROUS SULFATE 325 MG TABEC PO SCH (08:19)
[2017-12-03] MEDS: PANTOPRAZOLE SODIUM 40 MG TABLET.DR PO SCH ×2 (08:19→17:17)
[2017-12-03] MEDS: predniSONE 20 MG TABLET PO SCH (08:19)
[2017-12-03] MEDS: ACETAMINOPHEN 325 MG TABLET PO SCH ×3 (08:19→17:17)
[2017-12-03] MEDS: METFORMIN HCL 500 MG TABLET PO SCH ×2 (08:19→17:17)
[2017-12-03] MEDS: GABAPENTIN 100 MG CAPSULE PO SCH ×3 (08:19→17:17)
[2017-12-03] MEDS: CLOTRIMAZOLE 1% CREAM 30 GM TUBE TOP SCH ×2 (08:20→17:19)
[2017-12-03] MEDS: HYDROCORTISONE 1% CREAM 30 GM TUBE TP SCH ×2 (08:20→17:19)
[2017-12-03] MEDS: LISINOPRIL 5 MG TABLET PO SCH (08:32)
[2017-12-03] MEDS: CARVEDILOL 3.125 MG TABLET PO SCH ×3 (08:33→17:18)
--- NOTE | 2017-12-03 09:35 | NUR ---
AM Insulin held due to patients refusal to eat breakfast
[2017-12-03] MEDS: INSULIN REGULAR, HUMAN 300 UNIT/3 ML VIAL SQ PRN ×2 (12:32→20:24)
--- NOTE | 2017-12-03 17:42 | NUR ---
Patient refused insulin at 1630 to cover FSBS of 187
[2017-12-03 20:10] VITALS: BP 100/58
[2017-12-03] MEDS: INSULIN GLARGINE,HUM 300 UNITS/3 ML CARTRIDGE SQ SCH (20:26)
[2017-12-03] MEDS: SENNOSIDES/DOCUSATE SODIUM TABLET PO SCH (20:27)
[2017-12-03] MEDS: SIMVASTATIN 20 MG TABLET PO SCH (20:27)
[2017-12-03] MEDS ORDERED: MIRTAZAPINE 15 MG TABLET PO SCH (21:00)
--- NOTE | 2017-12-04 05:08 | NUR ---
slept well most of the shift. no acute distress noted. kept comfortable. patient going for PET SCAN this am. Will be pickup @ 0700am.Needs attended, kept comfortable. will monitor patient. No meds before procedure.
[2017-12-04 05:31] VITALS: BP 143/74
[2017-12-04] MEDS: BLOOD SUGAR DIAGNOSTIC 1 EACH STRIP VI SCH ×2 (06:00→11:56)
[2017-12-04] MEDS: SUCRALFATE 1 G TABLET PO SCH ×2 (06:33→11:53)
--- NOTE | 2017-12-04 06:34 | NUR ---
patient am meds not given, patient going for a procedure this am for PET scan this morning. Accucheck 143. needs attended. will monitor patient. needs attended.
[2017-12-04 08:00] VITALS: BP 135/82
[2017-12-04] MEDS: METFORMIN HCL 500 MG TABLET PO SCH (08:00)
[2017-12-04] MEDS: LISINOPRIL 5 MG TABLET PO SCH (09:00)
[2017-12-04] MEDS: CLOTRIMAZOLE 1% CREAM 30 GM TUBE TOP SCH (09:00)
[2017-12-04] MEDS: LIDOCAINE 5% PATCH TD SCH (09:00)
[2017-12-04] MEDS: GABAPENTIN 100 MG CAPSULE PO SCH ×2 (09:00→13:25)
[2017-12-04] MEDS: CARVEDILOL 3.125 MG TABLET PO SCH (09:00)
[2017-12-04] MEDS: HYDROCORTISONE 1% CREAM 30 GM TUBE TP SCH (09:00)
[2017-12-04] MEDS: LACTOBACILLUS RHAMNOSUS GG 1 EACH CAPSULE PO SCH (09:00)
[2017-12-04] MEDS: ACETAMINOPHEN 325 MG TABLET PO SCH ×2 (09:00→13:24)
[2017-12-04] MEDS: predniSONE 20 MG TABLET PO SCH (09:00)
[2017-12-04] MEDS: PANTOPRAZOLE SODIUM 40 MG TABLET.DR PO SCH (09:00)
[2017-12-04] MEDS: FERROUS SULFATE 325 MG TABEC PO SCH (09:00)
[2017-12-04] MEDS: INSULIN REGULAR, HUMAN 300 UNIT/3 ML VIAL SQ PRN (12:16)
[2017-12-04] MEDS ORDERED: TRAZ-147 PO (16:35)
--- NOTE | 2017-12-04 16:48 | NUR ---
pt discharged to [facility] for further monitoring at 1600. pt vitals stable. pt was trasferred for worsening pleural effusion. family notified. all belongings brought to room 216. belongings list signed and placed in chart. family verbalizes plan of care after being discharged from ARU.
== END 2017-12-04 16:01 | disposition short-term general hospital (02) | DRG 186 ==
PROVIDERS: ADMIT Physical Medicine & Rehabilitation Pain Medicine; ATTEND Physical Medicine & Rehabilitation Pain Medicine
DX: J90 Pleural effusion, not elsewhere classified (principal); J96.91 Respiratory failure, unspecified with hypoxia; E43 Unspecified severe protein-calorie malnutrition; D68.59 Other primary thrombophilia; E87.2 Acidosis; F32.2 Major depressive disorder, single episode, severe without psychotic features; N30.00 Acute cystitis without hematuria; I25.10 Atherosclerotic heart disease of native coronary artery without angina pectoris; I10 Essential (primary) hypertension; D64.9 Anemia, unspecified; E78.5 Hyperlipidemia, unspecified; Z91.14 Patient's other noncompliance with medication regimen; E11.65 Type 2 diabetes mellitus with hyperglycemia; R19.7 Diarrhea, unspecified; E66.9 Obesity, unspecified; Z68.37 Body mass index [BMI] 37.0-37.9, adult; R10.9 Unspecified abdominal pain; I11.0 Hypertensive heart disease with heart failure; I50.9 Heart failure, unspecified; I73.9 Peripheral vascular disease, unspecified; E83.39 Other disorders of phosphorus metabolism; E83.42 Hypomagnesemia; F41.9 Anxiety disorder, unspecified; G47.00 Insomnia, unspecified; K25.9 Gastric ulcer, unspecified as acute or chronic, without hemorrhage or perforation; Z95.1 Presence of aortocoronary bypass graft; R00.2 Palpitations; R42 Dizziness and giddiness
CPT/HCPCS: 36415; 71045; 83735; 84100; 84443; 85025; 87086; 92526; 92610; 93005; 97110; 97112; 97116; 97530; 97535; A4663; J1815; J7512

== ENCOUNTER 2017-12-04 16:17 | Inpatient (IN) | payer MEDICARE, OTHER ==
[~2017-12-04] VITALS: Ht 149.9 cm; Wt 82.1 kg
[~2017-12-04 16:17] MED LIST: ACET-2154 PO; BISA-79 RC; CARV3.122 PO; FERR325T28 PO; GABA-532 PO; INSU100V7 SQ; LACT1CAP57 PO; LEVO500T90 PO; LIDO30AD10 TD; LISI2.5T2 PO; METF10004 PO; PANT40TA2 PO; PRED20TA PO; SENN1TAB33 PO; SIMV20TA6 PO; SUCR1TAB PO; ZOLP5TAB2 PO
[2017-12-04] MEDS ORDERED: TRAZ-214 PO (16:35)
[2017-12-04] MEDS ORDERED: Z GUARD REMEDY PASTE 57 GM TUBE TOP PRN (16:45)
[2017-12-04] MEDS ORDERED: ZOLPIDEM 5 MG TABLET PO PRN (16:45)
[2017-12-04] MEDS ORDERED: ONDANSETRON 4 MG/2 ML VIAL IV PRN (16:45)
[2017-12-04 16:58] LABS: BASOPHILS # (AUTO) 0.1 K/uL (0.0-8.0); BASOPHILS % (AUTO) 0.6 % (0.0-2.0); EOSINOPHILS % (AUTO) 0.1 % (0.0-7.0); HEMOGLOBIN 10.5 g/dL (10.9-14.3); LYMPHOCYTES # (AUTO) 1.5 K/uL (20.0-40.0); LYMPHOCYTES % (AUTO) 8.3 % (20.5-51.5); MEAN CORPUSCULAR HEMOGLOBIN 27.8 uug (24.7-32.8); MEAN CORPUSCULAR HGB CONC 33 g/dL (32.3-35.6); MEAN CORPUSCULAR VOLUME 84.5 fL (75.5-95.3); MONOCYTES # (AUTO) 1.3 K/uL (2.0-10.0); MONOCYTES % (AUTO) 7.2 % (0.0-11.0); NEUTROPHILS # (AUTO) 15.2 K/uL (1.8-8.9); NEUTROPHILS % (AUTO) 83.8 % (38.5-71.5); PLATELET COUNT (AUTO) 312 K/uL (179-408); RED BLOOD CELL COUNT(AUTO) 3.79 MIL/uL (3.63-4.92); WHITE BLOOD COUNT (AUTO) 18.2 K/uL (3.8-11.8)
[2017-12-04] MEDS ORDERED: Medication Not On Formulary EA (Metformin Hcl 1,000 MG) PO SCH (17:00)
[2017-12-04 17:11] LABS: BILIRUBIN,TOTAL 0.8 mg/dL (0.2-1.0); CREATININE 0.8 mg/dL (0.6-1.3); TOTAL PROTEIN, SERUM 6.5 g/dL (6.4-8.2)
[2017-12-04 17:21] VITALS: BP 120/51
[2017-12-04] MEDS: LACTOBACILLUS RHAMNOSUS GG 1 EACH CAPSULE PO SCH (18:45)
[2017-12-04] MEDS: PANTOPRAZOLE SODIUM 40 MG TABLET.DR PO SCH (18:46)
[2017-12-04] MEDS: GABAPENTIN 100 MG CAPSULE PO SCH (18:46)
[2017-12-04] MEDS: CARVEDILOL 3.125 MG TABLET PO SCH (18:47)
[2017-12-04 19:00] VITALS: BP 138/70
--- NOTE | 2017-12-04 19:45 | NUR ---
Received patient awake, trying to get out of bed. Denies any pain/discomforts. No s/s of respiratory distress. Fall precaution and safety measures initiated.. Continue care as planned.
[2017-12-04] MEDS ORDERED: DEXTROSE 50% 50 ML DISP.SYRIN IV PRN (20:15)
[2017-12-04] MEDS ORDERED: TRAZODONE 100 MG TABLET PO SCH (21:00)
[2017-12-04] MEDS: SIMVASTATIN 20 MG TABLET PO SCH (22:23)
[2017-12-04] MEDS: SUCRALFATE 1 G TABLET PO SCH (22:23)
[2017-12-04] MEDS: BLOOD SUGAR DIAGNOSTIC 1 EACH STRIP VI SCH (22:26)
[2017-12-04] MEDS: INSULIN GLARGINE,HUM 300 UNITS/3 ML CARTRIDGE SQ SCH (22:27)
[2017-12-04] MEDS: INSULIN REGULAR, HUMAN 300 UNIT/3 ML VIAL SQ PRN (22:30)
[2017-12-05] VITALS (9 sets, daily range): BP systolic 91–137; BP diastolic 58–75
--- NOTE | 2017-12-05 05:24 | NUR ---
Shift end report: Slight SOB /SOBOE presented throughout the night. Been on the chair all the time to facilitate easy breathing. Tolerated 4L O2 via NC, saturating 96-98%. Denies any pain. Safety measures and fall precaution maintained. All needs attended and met. Continue care as planned.
[2017-12-05 06:02] LABS: BASOPHILS # (AUTO) 0.1 K/uL (0.0-8.0); BASOPHILS % (AUTO) 0.8 % (0.0-2.0); EOSINOPHILS % (AUTO) 0.1 % (0.0-7.0); HEMATOCRIT 31.9 % (31.2-41.9); HEMOGLOBIN 10.5 g/dL (10.9-14.3); LYMPHOCYTES # (AUTO) 1.8 K/uL (20.0-40.0); LYMPHOCYTES % (AUTO) 10.8 % (20.5-51.5); MEAN CORPUSCULAR HEMOGLOBIN 27.8 uug (24.7-32.8); MEAN CORPUSCULAR HGB CONC 33 g/dL (32.3-35.6); MEAN CORPUSCULAR VOLUME 84.3 fL (75.5-95.3); MONOCYTES # (AUTO) 1.4 K/uL (2.0-10.0); MONOCYTES % (AUTO) 8.1 % (0.0-11.0); NEUTROPHILS # (AUTO) 13.6 K/uL (1.8-8.9); NEUTROPHILS % (AUTO) 80.2 % (38.5-71.5); PLATELET COUNT (AUTO) 303 K/uL (179-408); RED BLOOD CELL COUNT(AUTO) 3.79 MIL/uL (3.63-4.92)
[2017-12-05 06:13] LABS: CREATININE 0.8 mg/dL (0.6-1.3); PHOSPHOROUS 3.1 mg/dL (2.5-4.9)
[2017-12-05] MEDS: BLOOD SUGAR DIAGNOSTIC 1 EACH STRIP VI SCH ×4 (06:13→21:09)
[2017-12-05 06:22] LABS: MAGNESIUM 1.1 mg/dL (1.8-2.4)
--- NOTE | 2017-12-05 06:25 | NUR ---
Left message for Dr Tijerina via [employer] for an abnormal lab result og Magnesium 1.1. Anticipating MD to call back. Charge nurse made aware.
--- NOTE | 2017-12-05 06:56 | NUR ---
Dr. Tijerina called back with new order of Mag 4 bags IV, carried.
--- NOTE | 2017-12-05 07:50 | NUR ---
Patient noted resting in bed with eyes closed, no facial cues of pain noted, no signs of distress, call light in reach, bed locked and in lowest position, x2 bed rails in place, all needs met at this time
[2017-12-05] MEDS: LISINOPRIL 5 MG TABLET PO SCH (09:00)
[2017-12-05] MEDS: SUCRALFATE 1 G TABLET PO SCH ×4 (10:32→21:59)
[2017-12-05] MEDS: LIDOCAINE 5% PATCH TD SCH (10:32)
[2017-12-05] MEDS: LACTOBACILLUS RHAMNOSUS GG 1 EACH CAPSULE PO SCH ×2 (10:32→17:00)
[2017-12-05] MEDS: FERROUS SULFATE 325 MG TABEC PO SCH (10:33)
[2017-12-05] MEDS: METFORMIN HCL 500 MG TABLET PO SCH ×2 (10:33→17:01)
[2017-12-05] MEDS: PANTOPRAZOLE SODIUM 40 MG TABLET.DR PO SCH ×2 (10:33→17:01)
[2017-12-05] MEDS: CARVEDILOL 3.125 MG TABLET PO SCH ×2 (10:34→17:01)
[2017-12-05] MEDS: GABAPENTIN 100 MG CAPSULE PO SCH ×3 (10:34→17:01)
[2017-12-05] MEDS ORDERED: MAGNESIUM SULFATE/D5W 400 ML ONE (10:53)
[2017-12-05] MEDS: MAGNESIUM SULFATE/D5W 100 ML IV SCH ×4 (11:15→15:28)
[2017-12-05] MEDS: HYDROCODONE/APAP 5-325MG TABLET PO PRN (12:03)
[2017-12-05] MEDS ORDERED: LIDOCAINE HCL 1% 20 ML VIAL IJ STA (12:21)
--- NOTE | 2017-12-05 13:43 | NUR ---
Insulin held due to patient being NPO prior to thoracentesis, 600 ml clear jennifer color fluid obtained during today's thoracentesis.
[2017-12-05] MEDS ORDERED: LEVOFLOXACIN 750MG/D5W 750 MG in PREMIXED 1 EACH IV SCH (14:00)
[2017-12-05] MEDS: INSULIN REGULAR, HUMAN 300 UNIT/3 ML VIAL SQ PRN ×2 (17:05→21:17)
--- NOTE | 2017-12-05 18:53 | NUR ---
Patient complaints of heart palpitations, heart rate of 142 noted, MD Madison notified with orders for STAT EKG
[2017-12-05] MEDS ORDERED: AMIODARONE HCL IV 150 MG in IV DEXTROSE 5% 100 ML IV ONE (19:30)
--- NOTE | 2017-12-05 19:31 | NUR ---
RECEIVED PT FROM RM 216 VIA BED, AWAKE, ALERT & ORIENTED X3, SPEAK & UNDERSTAND LITTLE KOREAN, FARSI SPEAKING. HEP LOCK INTACT ON LEFT HAND INTACT & PATENT. C-SCOPE AFLUTTER TO AFIB UNCONTROLLED. AFEBRILE. DR. CORMIER WAS HERE & TALKED TO DAUGHTER.
[2017-12-05] MEDS ORDERED: AMIODARONE HCL IV 900 MG in IV DEXTROSE 5% 482 ML IV PRN (20:00)
--- NOTE | 2017-12-05 20:12 | NUR ---
HUNG THE AMIODARONE IV BOLUS OF 150MG ON L HAND.
--- NOTE | 2017-12-05 20:36 | NUR ---
STARTED AMIODARONE DRIP @ 1MG/HR. STARTED SECOND LINE ON LEFT HAND W/ #22 ANGIO. FOR IVPB MED ANTIBIOTIC.
[2017-12-05] MEDS: CEFTRIAXONE 1 G in IV DEXTROSE 5% 50 ML IV SCH (20:54)
[2017-12-05] MEDS: SIMVASTATIN 20 MG TABLET PO SCH (21:13)
[2017-12-05] MEDS: DOXYCYCLINE HYCLATE 100 MG TABLET PO SCH (21:13)
[2017-12-05] MEDS: INSULIN GLARGINE,HUM 300 UNITS/3 ML CARTRIDGE SQ SCH (21:16)
--- NOTE | 2017-12-05 21:30 | NUR ---
INSERTED VELASCO CATH ORDERED W/ #16, W/O DIFFICULTY W/ MOD. LITA CLEAR URINE. SENT URINE SPECIMEN FOR CULTURE. BEDBATH GIVEN & REPOSITIONED ON HER SIDE W/ HOB ELEVATED.
[2017-12-05] MEDS ORDERED: SUCRALFATE 1 G TABLET ONE (22:17)
[2017-12-05 23:05] LABS: *BLOOD, URINE NEGATIVE (NEGATIVE); *COLOR,URINE YELLOW (YELLOW); *KETONES,URINE TRACE (NEGATIVE); *PROTEIN,URINE NEGATIVE (NEGATIVE); LEUKOCYTE ESTERASE ,URINE NEGATIVE (NEGATIVE); NITRITE, URINE NEGATIVE (NEGATIVE); UGLUCOSE NEGATIVE (NEGATIVE)
[2017-12-05 23:16] LABS: *BILIRUBIN,URIN 1+ (NEGATIVE)
[2017-12-05 23:17] LABS: *CLARITY,URINE HAZY (CLEAR)
[2017-12-05 23:19] LABS: BACTERIA,URINE NONE SEEN /HPF (NONE SEEN); RBC,URINE 0-3 /HPF (0-3); SQUAMOUS EPITHELIAL CELL,UR MODERATE /HPF (NONE SEEN); WBC,URINE 0-3 /HPF (0-3)
--- NOTE | 2017-12-05 23:30 | NUR ---
SLEEPING @ THIS TIME. BP STABLE. C-SCOPE AFLUTTER .
[2017-12-06] VITALS (23 sets, daily range): BP systolic 91–131; BP diastolic 48–90
--- NOTE | 2017-12-06 05:00 | NUR ---
SLEPT WELL. BP STABLE. REPOSITIONED ON HER SIDE W/ HOB ELEVATED.
[2017-12-06 05:24] LABS: BASOPHILS # (AUTO) 0.1 K/uL (0.0-8.0); BASOPHILS % (AUTO) 0.8 % (0.0-2.0); EOSINOPHILS # (AUTO) 0.1 K/uL (0.0-0.7); EOSINOPHILS % (AUTO) 0.5 % (0.0-7.0); HEMATOCRIT 30.7 % (31.2-41.9); LYMPHOCYTES # (AUTO) 1.7 K/uL (20.0-40.0); LYMPHOCYTES % (AUTO) 11.3 % (20.5-51.5); MEAN CORPUSCULAR HEMOGLOBIN 27.3 uug (24.7-32.8); MEAN CORPUSCULAR HGB CONC 33 g/dL (32.3-35.6); MEAN CORPUSCULAR VOLUME 83.7 fL (75.5-95.3); MONOCYTES # (AUTO) 1.1 K/uL (2.0-10.0); MONOCYTES % (AUTO) 7.2 % (0.0-11.0); NEUTROPHILS # (AUTO) 11.9 K/uL (1.8-8.9); NEUTROPHILS % (AUTO) 80.2 % (38.5-71.5); PLATELET COUNT (AUTO) 281 K/uL (179-408); RED BLOOD CELL COUNT(AUTO) 3.67 MIL/uL (3.63-4.92); WHITE BLOOD COUNT (AUTO) 14.8 K/uL (3.8-11.8)
[2017-12-06 05:30] LABS: CREATININE 0.9 mg/dL (0.6-1.3); POTASSIUM 4.7 mmol/L (3.5-5.1)
[2017-12-06] MEDS: BLOOD SUGAR DIAGNOSTIC 1 EACH STRIP VI SCH ×4 (07:30→21:49)
[2017-12-06] MEDS: LACTOBACILLUS RHAMNOSUS GG 1 EACH CAPSULE PO SCH ×2 (08:08→16:18)
[2017-12-06] MEDS: PANTOPRAZOLE SODIUM 40 MG TABLET.DR PO SCH ×2 (08:08→16:18)
[2017-12-06] MEDS: CARVEDILOL 3.125 MG TABLET PO SCH ×2 (08:08→17:12)
[2017-12-06] MEDS: LISINOPRIL 5 MG TABLET PO SCH (08:09)
[2017-12-06] MEDS: SUCRALFATE 1 G TABLET PO SCH ×4 (08:11→21:47)
[2017-12-06] MEDS: GABAPENTIN 100 MG CAPSULE PO SCH ×3 (08:11→16:18)
[2017-12-06] MEDS: FERROUS SULFATE 325 MG TABEC PO SCH (08:11)
[2017-12-06] MEDS: METFORMIN HCL 500 MG TABLET PO SCH ×2 (08:11→17:12)
[2017-12-06] MEDS: DOXYCYCLINE HYCLATE 100 MG TABLET PO SCH ×2 (08:12→21:49)
[2017-12-06] MEDS: LIDOCAINE 5% PATCH TD SCH (08:49)
[2017-12-06] MEDS: HYDROCODONE/APAP 5-325MG TABLET PO PRN (08:55)
--- NOTE | 2017-12-06 09:55 | NUR ---
SUPERVISOR REFINING Harlan Cai here to see pt. Full report given. New orders received and carried out.
--- NOTE | 2017-12-06 10:06 | NUR ---
Dr. Zapata here to see pt. Full report given. New orders received.
--- NOTE | 2017-12-06 10:25 | NUR ---
Pt's PET scan results from [facility] received and given to Dr. Zapata.
--- NOTE | 2017-12-06 10:52 | NUR ---
US tech here to see pt for 2D Echocardiogram.
[2017-12-06] MEDS: INSULIN REGULAR, HUMAN 300 UNIT/3 ML VIAL SQ PRN ×3 (11:11→21:50)
--- NOTE | 2017-12-06 12:05 | NUR ---
Spoke with Dr. Dominguez on the telephone regarding pt's continuously high heart rate (a-fib HR 140's). No new orders received. MD to see and consult pt later today.
--- NOTE | 2017-12-06 13:12 | NUR ---
Dr. Dominguez here to see pt. Full report given. New orders received.
[2017-12-06] MEDS ORDERED: FUROSEMIDE 40 MG/4 ML VIAL IV ONE (13:15)
--- NOTE | 2017-12-06 13:40 | NUR ---
Consent for left-sided ultrasound guided thoracentesis signed by Maryuri (daughter) at the bedside. Daughter alert and oriented during our conversation and is aware of the procedures to be done as explained by ODALIS Cai and Dr. Zapata.
[2017-12-06] MEDS: AMIODARONE HCL IV 900 MG in IV DEXTROSE 5% 482 ML IV PRN ×2 (14:34→17:13)
--- NOTE | 2017-12-06 18:35 | NUR ---
and US tech here to see pt for left guided US thoracentesis.
--- NOTE | 2017-12-06 18:50 | NUR ---
Left guided US thoracentesis complete. 1.2L of thoracentesis, tea-colored fluid removed. Pt stable and nad noted upon completion of the procedure.
--- NOTE | 2017-12-06 19:00 | NUR ---
PATIENT SHIELDED AFGA: 110@3.2 EXAM END 1900
[2017-12-06] MEDS: CEFTRIAXONE 1 G in IV DEXTROSE 5% 50 ML IV SCH (19:36)
[2017-12-06] MEDS: SIMVASTATIN 20 MG TABLET PO SCH (21:47)
[2017-12-06] MEDS: INSULIN GLARGINE,HUM 300 UNITS/3 ML CARTRIDGE SQ SCH (21:49)
[2017-12-07] VITALS (22 sets, daily range): BP systolic 91–135; BP diastolic 47–88
--- NOTE | 2017-12-07 02:00 | NUR ---
Unsuccessful attempt at bedside commode.
[2017-12-07] MEDS ORDERED: MORPHINE SULFATE 2 MG/1 ML DISP.SYRIN IV PRN (02:45)
[2017-12-07 05:10] LABS: BASOPHILS # (AUTO) 0.1 K/uL (0.0-8.0); BASOPHILS % (AUTO) 0.8 % (0.0-2.0); EOSINOPHILS # (AUTO) 0.1 K/uL (0.0-0.7); EOSINOPHILS % (AUTO) 0.7 % (0.0-7.0); HEMATOCRIT 29.8 % (31.2-41.9); HEMOGLOBIN 9.9 g/dL (10.9-14.3); LYMPHOCYTES # (AUTO) 1.4 K/uL (20.0-40.0); MEAN CORPUSCULAR HEMOGLOBIN 27.7 uug (24.7-32.8); MEAN CORPUSCULAR HGB CONC 33 g/dL (32.3-35.6); MEAN CORPUSCULAR VOLUME 83.7 fL (75.5-95.3); MONOCYTES # (AUTO) 0.9 K/uL (2.0-10.0); MONOCYTES % (AUTO) 7.6 % (0.0-11.0); NEUTROPHILS # (AUTO) 9.5 K/uL (1.8-8.9); NEUTROPHILS % (AUTO) 78.9 % (38.5-71.5); PLATELET COUNT (AUTO) 297 K/uL (179-408); RED BLOOD CELL COUNT(AUTO) 3.56 MIL/uL (3.63-4.92); WHITE BLOOD COUNT (AUTO) 12.1 K/uL (3.8-11.8)
[2017-12-07 05:18] LABS: CREATININE 1.1 mg/dL (0.6-1.3); POTASSIUM 4.4 mmol/L (3.5-5.1)
[2017-12-07] MEDS: BLOOD SUGAR DIAGNOSTIC 1 EACH STRIP VI SCH ×4 (07:23→20:43)
[2017-12-07] MEDS: SUCRALFATE 1 G TABLET PO SCH ×4 (07:23→20:38)
[2017-12-07 07:42] LABS: ABG BASE EXCESS 3.8 mmol/L; ABG PCO2 53.9 mmHg (35.0-45.0); ABG PH 7.364 (7.350-7.450); ABG PO2 66.8 mmHg (75.0-100.0); ABG SITE RIGHT RADIAL; ABG TOTAL HEMOGLOBIN 10.7 G/dL (12.0-16.0); MetHb 0.1 % (0.0-1.5); O2Hb 91.9 % (94.0-97.0); VENT MODE Nasal Cannula
[2017-12-07] MEDS: CARVEDILOL 3.125 MG TABLET PO SCH ×2 (07:54→17:12)
[2017-12-07] MEDS: FERROUS SULFATE 325 MG TABEC PO SCH (07:55)
[2017-12-07] MEDS: PANTOPRAZOLE SODIUM 40 MG TABLET.DR PO SCH ×2 (07:55→16:05)
[2017-12-07] MEDS: LACTOBACILLUS RHAMNOSUS GG 1 EACH CAPSULE PO SCH ×2 (07:55→16:05)
[2017-12-07] MEDS: LISINOPRIL 5 MG TABLET PO SCH (07:55)
[2017-12-07] MEDS: GABAPENTIN 100 MG CAPSULE PO SCH ×3 (07:55→16:05)
[2017-12-07] MEDS: METFORMIN HCL 500 MG TABLET PO SCH ×2 (07:55→17:10)
[2017-12-07] MEDS: LIDOCAINE 5% PATCH TD SCH (07:56)
[2017-12-07] MEDS: DOXYCYCLINE HYCLATE 100 MG TABLET PO SCH ×2 (07:56→20:38)
[2017-12-07] MEDS: MAGNESIUM HYDROXIDE 30 ML LIQUID UDC PO PRN (08:27)
--- NOTE | 2017-12-07 08:50 | NUR ---
ERP ENGINEER Harlan Cai here to see pt. Full report given. New orders received.
--- NOTE | 2017-12-07 09:56 | NUR ---
Dr. Zapata here to see pt. Full report given. New orders received.
[2017-12-07] MEDS: INSULIN REGULAR, HUMAN 300 UNIT/3 ML VIAL SQ PRN ×3 (11:36→20:45)
[2017-12-07 14:26] LABS: TOTAL PROTEIN, SERUM 5.7 g/dL (6.4-8.2)
[2017-12-07] MEDS: AMIODARONE HCL IV 900 MG in IV DEXTROSE 5% 482 ML IV PRN (17:13)
[2017-12-07] MEDS ORDERED: AMIODARONE HCL IV 150 MG in IV DEXTROSE 5% 100 ML IV ONE (20:00)
--- NOTE | 2017-12-07 20:00 | NUR ---
RECEIVED PT. AWAKE, ALERT & ORIENTED X3, SPEAKS FARSI, UNDERSTAND & SPEAKS LITTLE MALTESE. ON O2 @ 2L NC W/ O2 SAT OF 97%. ON AMIODARONE DRIP @ 0.5MG/HR ON L HAND. REMOVED #2 IV SITE ON L HAND, INFILTRATED. PT. SEEMS AGITATED OF UNKNOWN. REPOSITIONED W/ HOB ELEVATED.
[2017-12-07] MEDS ORDERED: CEFTRIAXONE 1 G VIAL ONE (20:03)
--- NOTE | 2017-12-07 20:05 | NUR ---
STARTED #2 IV SITE ON R HAND W/ #22 ANGIO, ATTACHED AMIODARONE DRIP.
[2017-12-07] MEDS: CEFTRIAXONE 1 G in IV DEXTROSE 5% 50 ML IV SCH (20:13)
--- NOTE | 2017-12-07 20:15 | NUR ---
DR BARRIOS WAS HERE W/ ORDERS.
[2017-12-07] MEDS ORDERED: AMIODARONE HCL 150 MG/3 ML VIAL IV ONE (20:18)
[2017-12-07] MEDS: SIMVASTATIN 20 MG TABLET PO SCH (20:38)
[2017-12-07] MEDS: INSULIN GLARGINE,HUM 300 UNITS/3 ML CARTRIDGE SQ SCH (20:44)
[2017-12-07] MEDS: MORPHINE SULFATE 4 MG/1 ML DISP.SYRIN IV PRN (21:06)
--- NOTE | 2017-12-07 21:06 | NUR ---
MEDICATED W/ MORPHINE 2MG FOR PAIN, PT UNABLE TO SCALE.. V/S STABLE.
--- NOTE | 2017-12-07 22:00 | NUR ---
SLEEPING @ THIS TIME.HR-108 AFIB.
[2017-12-07] MEDS: METOPROLOL TARTRATE 25 MG TABLET PO SCH (23:52)
[2017-12-08] VITALS (25 sets, daily range): BP systolic 92–137; BP diastolic 38–82
--- NOTE | 2017-12-08 03:00 | NUR ---
Has been sleeping. In no apparent acute distress. Had Tammy at HS. Addendum: 12/09/17 at 0312 by DAVID STATON RN Date correction today December 09, 2017.
[2017-12-08 05:15] LABS: BASOPHILS % (AUTO) 0.1 % (0.0-2.0); EOSINOPHILS # (AUTO) 0.1 K/uL (0.0-0.7); EOSINOPHILS % (AUTO) 0.7 % (0.0-7.0); HEMATOCRIT 31.4 % (31.2-41.9); HEMOGLOBIN 10.3 g/dL (10.9-14.3); LYMPHOCYTES # (AUTO) 1.4 K/uL (20.0-40.0); LYMPHOCYTES % (AUTO) 10.8 % (20.5-51.5); MEAN CORPUSCULAR HEMOGLOBIN 27.2 uug (24.7-32.8); MEAN CORPUSCULAR HGB CONC 33 g/dL (32.3-35.6); MEAN CORPUSCULAR VOLUME 82.8 fL (75.5-95.3); MONOCYTES # (AUTO) 1.1 K/uL (2.0-10.0); MONOCYTES % (AUTO) 8.7 % (0.0-11.0); NEUTROPHILS # (AUTO) 10.1 K/uL (1.8-8.9); NEUTROPHILS % (AUTO) 79.7 % (38.5-71.5); PLATELET COUNT (AUTO) 359 K/uL (179-408); RED BLOOD CELL COUNT(AUTO) 3.79 MIL/uL (3.63-4.92); WHITE BLOOD COUNT (AUTO) 12.7 K/uL (3.8-11.8)
[2017-12-08 05:25] LABS: CREATININE 0.9 mg/dL (0.6-1.3); POTASSIUM 5.1 mmol/L (3.5-5.1)
[2017-12-08] MEDS: MORPHINE SULFATE 4 MG/1 ML DISP.SYRIN IV PRN (05:30)
--- NOTE | 2017-12-08 05:35 | NUR ---
AM CARE DONE. REPOSITIONED W/ HOB ELEVATED. C/O PAIN , MEDICATED W/ MORPHINE 2MG IVP BP STABLE.
[2017-12-08] MEDS: METOPROLOL TARTRATE 25 MG TABLET PO SCH ×3 (05:50→17:45)
--- NOTE | 2017-12-08 07:15 | NUR ---
RECEIVED A 67 Y/O FEMALE PT FROM ASSISTANT PRODUCE MANAGER RN, A CASE OF PLEURAL EFFUSION, A.FLUTTER. PT IS CONSCIOUS, ORIENTED X3. BREATHING VIA N/C 2LPM. CONNECTED TO WET WHEELER SHOWING IRREGULAR RHYTHM. HAS ONE RT HAND PERIPHERAL LINE G 22 RECEIVING INFUSION AMIODARONE RATE 0.5MG/ HR @ RATE 18ML/H. URINATING VIA FC.
[2017-12-08] MEDS: BLOOD SUGAR DIAGNOSTIC 1 EACH STRIP VI SCH ×4 (07:33→20:58)
[2017-12-08] MEDS: SUCRALFATE 1 G TABLET PO SCH ×4 (08:06→20:44)
[2017-12-08] MEDS: METFORMIN HCL 500 MG TABLET PO SCH ×2 (08:06→17:41)
[2017-12-08] MEDS: INSULIN REGULAR, HUMAN 300 UNIT/3 ML VIAL SQ PRN ×4 (08:28→20:53)
--- NOTE | 2017-12-08 08:37 | NUR ---
PATIENT RECEIVED HER BREAKFAST TOLERATED WELL , DIDN'T EAT MUCH , DESPITE COMPLAINING SHE WAS HUNGRY. TOOK ALL HER MEDICATION , AND WENT TO SLEEP.
[2017-12-08] MEDS: FERROUS SULFATE 325 MG TABEC PO SCH (08:41)
[2017-12-08] MEDS: GABAPENTIN 100 MG CAPSULE PO SCH ×3 (08:41→17:42)
[2017-12-08] MEDS: LACTOBACILLUS RHAMNOSUS GG 1 EACH CAPSULE PO SCH ×2 (08:41→17:41)
[2017-12-08] MEDS: PANTOPRAZOLE SODIUM 40 MG TABLET.DR PO SCH ×2 (08:41→17:42)
[2017-12-08] MEDS: LIDOCAINE 5% PATCH TD SCH (08:42)
[2017-12-08] MEDS: DOXYCYCLINE HYCLATE 100 MG TABLET PO SCH ×2 (08:42→20:44)
[2017-12-08] MEDS: SENNOSIDES/DOCUSATE SODIUM TABLET PO PRN (08:46)
[2017-12-08] MEDS ORDERED: FUROSEMIDE 40 MG/4 ML VIAL IV STA (11:38)
--- NOTE | 2017-12-08 11:45 | NUR ---
PERIPHERAL LINE TRAIL FAILED, DR AIDEN BEST INFORMED TO INSERT A PICC/ MID LINE, CONSENT TAKEN FROM DAUGHTER OVER PHONE, GINGER CULVER
--- NOTE | 2017-12-08 11:46 | NUR ---
SEEN BY DR BEST , ORDERED TO START PT ON HEPARIN DRIP, AND GAVE 40MG LASIX IV STAT .
--- NOTE | 2017-12-08 12:30 | NUR ---
CONNOR ( PICC LINE SPECIALIST) CAME TO INSERT MIDLINE,TRIED 3 TIMES TO INSERT A MIDLINE ,BUT FAILED. DR WINSTON INFORMED.
--- NOTE | 2017-12-08 14:00 | NUR ---
CAME AND INSERTED A RU MIDLINE, GOOD BLOOD RETURN, AND BLOOD SAMPLES TAKEN FOR LAB.
[2017-12-08] MEDS: HEPARIN/D5W DRIP 500 ML IV PRN (15:33)
--- NOTE | 2017-12-08 16:30 | NUR ---
bed bath done for pt , all bed linen changed and mouth care done for pt
--- NOTE | 2017-12-08 17:30 | NUR ---
SEEN BY DR BARRIOS , ORDERED TO GIVE PT DIGOXIN IV STAT, ORDER CARRIED OUT
[2017-12-08] MEDS: AMIODARONE HCL IV 900 MG in IV DEXTROSE 5% 482 ML IV PRN ×2 (17:45→19:55)
--- NOTE | 2017-12-08 17:45 | NUR ---
PATIENT COMPLAINED OF HEADACHE TYLENOL PO GIVEN.
[2017-12-08] MEDS: ACETAMINOPHEN 325 MG TABLET PO PRN (17:46)
[2017-12-08] MEDS ORDERED: DIGOXIN 500 MCG/2 ML AMP IV ONE (18:00)
[2017-12-08] MEDS ORDERED: NORMAL SALINE FLUSH 10 ML DISP.SYRIN IV PRN (18:45)
[2017-12-08] MEDS ORDERED: HEPARIN SODIUM,PORCINE/PF 100 UNIT/ML, 5ML SYR IV PRN (18:45)
[2017-12-08] MEDS: CEFTRIAXONE 1 G in IV DEXTROSE 5% 50 ML IV SCH (19:53)
--- NOTE | 2017-12-08 20:00 | NUR ---
Pt awake, alert, extremely anxious. Noted language barrier as pt speaks only Farsi and Thai. Son here for visit. Updated with pt condition and care plans; appreciative of care and info. Amiodarone and heparin drips infusing well (See IV spreadsheet). No evidence of bleeding. Monitor shows AFib/AFlutter rate 90's. Please see CCU flowsheet for full assessment and clinical data.
--- NOTE | 2017-12-08 20:20 | NUR ---
Assisted to bedside chair per request. Pt appeared weak, had SOB on exertion, O2 in use. Had jello snacks while OOB, tolerated well. Daughter called in update.
[2017-12-08] MEDS: SIMVASTATIN 20 MG TABLET PO SCH (20:44)
[2017-12-08] MEDS: NORMAL SALINE FLUSH 10 ML DISP.SYRIN IV SCH (20:45)
[2017-12-08] MEDS: ALPRAZOLAM 0.25 MG TABLET PO PRN (20:45)
[2017-12-08] MEDS: INSULIN GLARGINE,HUM 300 UNITS/3 ML CARTRIDGE SQ SCH (20:52)
[2017-12-09] VITALS (19 sets, daily range): BP systolic 101–150; BP diastolic 44–93
[2017-12-09] MEDS ORDERED: HEPARIN SODIUM,PORCINE 5,000 UNITS/ML VIAL IV ONE (00:15)
[2017-12-09] MEDS: METOPROLOL TARTRATE 25 MG TABLET PO SCH ×3 (00:21→12:47)
[2017-12-09] MEDS ORDERED: DIGOXIN 500 MCG/2 ML AMP IV ONE ×2 (06:00)
[2017-12-09] MEDS: MORPHINE SULFATE 4 MG/1 ML DISP.SYRIN IV PRN ×2 (06:17→17:13)
[2017-12-09] MEDS ORDERED: DIGOXIN 500 MCG/2 ML AMP ONE (06:30)
[2017-12-09 06:44] LABS: CREATININE 0.9 mg/dL (0.6-1.3); MAGNESIUM 1.3 mg/dL (1.8-2.4); PHOSPHOROUS 4.7 mg/dL (2.5-4.9)
[2017-12-09 06:52] LABS: BASOPHILS % (AUTO) 0.3 % (0.0-2.0); EOSINOPHILS # (AUTO) 0.1 K/uL (0.0-0.7); EOSINOPHILS % (AUTO) 0.7 % (0.0-7.0); HEMATOCRIT 30.3 % (31.2-41.9); HEMOGLOBIN 9.8 g/dL (10.9-14.3); LYMPHOCYTES # (AUTO) 1.7 K/uL (20.0-40.0); LYMPHOCYTES % (AUTO) 10.8 % (20.5-51.5); MEAN CORPUSCULAR HGB CONC 32 g/dL (32.3-35.6); MEAN CORPUSCULAR VOLUME 83.4 fL (75.5-95.3); MONOCYTES % (AUTO) 6.3 % (0.0-11.0); NEUTROPHILS # (AUTO) 12.8 K/uL (1.8-8.9); NEUTROPHILS % (AUTO) 81.9 % (38.5-71.5); PLATELET COUNT (AUTO) 369 K/uL (179-408); RED BLOOD CELL COUNT(AUTO) 3.63 MIL/uL (3.63-4.92); WHITE BLOOD COUNT (AUTO) 15.6 K/uL (3.8-11.8)
--- NOTE | 2017-12-09 07:00 | NUR ---
This AM's PTT critical at 149.7 sec. Heparin held for an hour per protocol and endorsed to Day RN. Pt had restful night; required Morphine dose this AM for gen pain. Please see CCU flowsheet for trends and clinical data.
--- NOTE | 2017-12-09 07:05 | NUR ---
RECEIVED A 67 Y/O FEMALE PT FROM FOREIGN EXCHANGE STUDENT COORDINATOR RN, A CASE OF PLEURAL EFFUSION AND CARDIAC ARRHYTHMIA. PT IS CONSCIOUS, ORIENTED X3. BREATHING VIA N/C 2LPM. CONNECTED TO WASTEWATER ENGINEER SHOWING SINUS RHYTHM. HAS ONE RT HAND PERIPHERAL LINE G 22 AND TR UPPER MIDLINE, RECEIVING INFUSION AMIODARONE RATE 0.5MG/ HR @ RATE 18ML/H. ON HEPARIN DRIP THAT IS ON HOLD. URINATING VIA FC
[2017-12-09] MEDS: SUCRALFATE 1 G TABLET PO SCH ×4 (08:15→20:40)
[2017-12-09] MEDS: METFORMIN HCL 500 MG TABLET PO SCH ×2 (08:15→18:40)
[2017-12-09] MEDS: BLOOD SUGAR DIAGNOSTIC 1 EACH STRIP VI SCH ×6 (08:19→22:25)
[2017-12-09] MEDS: FERROUS SULFATE 325 MG TABEC PO SCH (09:53)
[2017-12-09] MEDS: LACTOBACILLUS RHAMNOSUS GG 1 EACH CAPSULE PO SCH ×2 (09:53→17:48)
[2017-12-09] MEDS: PANTOPRAZOLE SODIUM 40 MG TABLET.DR PO SCH ×2 (09:53→17:48)
[2017-12-09] MEDS: LIDOCAINE 5% PATCH TD SCH (09:54)
[2017-12-09] MEDS: GABAPENTIN 100 MG CAPSULE PO SCH ×3 (09:54→17:48)
[2017-12-09] MEDS: SENNOSIDES/DOCUSATE SODIUM TABLET PO PRN (09:54)
[2017-12-09] MEDS: DOXYCYCLINE HYCLATE 100 MG TABLET PO SCH (09:54)
[2017-12-09] MEDS: NORMAL SALINE FLUSH 10 ML DISP.SYRIN IV SCH ×2 (09:55→21:14)
[2017-12-09] MEDS ORDERED: ACIDOPHILUS/BULGARICUS CHEW TAB PO SCH (11:15)
[2017-12-09] MEDS ORDERED: LEVOFLOXACIN 500 MG/D5W 500 MG in PREMIXED 1 EACH IV SCH (11:15)
[2017-12-09] MEDS: MAGNESIUM SULFATE/D5W 100 ML IV SCH ×3 (12:45→17:45)
[2017-12-09] MEDS: HEPARIN/D5W DRIP 500 ML IV PRN (13:11)
--- NOTE | 2017-12-09 14:00 | NUR ---
BLOOD SAMPLE TAKEN AND SENT TO LAB FOR PTT, PATIENT SEEN BY PHYSIO THERAPY AND SAT ON EDGE OF BED AND DANGLED HER FEET.
--- NOTE | 2017-12-09 14:30 | NUR ---
PT RESULT 52.7 NO CHANGES ON HEPARIN DRIP, TO CONTINUE AT SAME RATE AND NEXT PTT AT 0000 07
--- NOTE | 2017-12-09 15:00 | NUR ---
BLOOD SAMPLE TAKEN AND SENT TO LAB FOR PTT, PATIENT SEEN BY PHYSIO THERAPY AND SAT ON EDGE OF BED AND DANGLED HER FEET. Addendum: 12/09/17 at 1810 by ROMERO EARLY RN WRONG TIME
[2017-12-09 15:10] LABS: *BILIRUBIN,URIN NEGATIVE (NEGATIVE); *BLOOD, URINE 3+ (NEGATIVE); *COLOR,URINE YELLOW (YELLOW); *KETONES,URINE NEGATIVE (NEGATIVE); *PROTEIN,URINE 1+ (NEGATIVE); *UROBILINOGEN,URINE 0.2 E.U./dl (NORMAL); LEUKOCYTE ESTERASE ,URINE TRACE (NEGATIVE); NITRITE, URINE NEGATIVE (NEGATIVE); UGLUCOSE NEGATIVE (NEGATIVE)
[2017-12-09 15:20] LABS: *CLARITY,URINE HAZY (CLEAR)
[2017-12-09 15:25] LABS: BACTERIA,URINE FEW /HPF (NONE SEEN); RBC,URINE 50-80 /HPF (0-3); SQUAMOUS EPITHELIAL CELL,UR FEW /HPF (NONE SEEN)
[2017-12-09 15:26] LABS: MUCUS,URINE MODERATE /LPF (0-FEW); YEAST,URINE MODERATE /HPF (NONE SEEN)
[2017-12-09] MEDS: MAGNESIUM HYDROXIDE 30 ML LIQUID UDC PO PRN (16:31)
[2017-12-09] MEDS: FUROSEMIDE 20 MG/2 ML VIAL IV SCH (16:31)
[2017-12-09] MEDS: AMIODARONE HCL 200 MG TABLET PO SCH ×2 (16:32→21:13)
[2017-12-09] MEDS ORDERED: MAGNESIUM SULFATE/D5W 100 ML ONE (17:46)
[2017-12-09] MEDS: INSULIN REGULAR, HUMAN 300 UNIT/3 ML VIAL SQ PRN (17:46)
[2017-12-09] MEDS: RIVAROXABAN 10 MG TABLET PO SCH (18:43)
--- NOTE | 2017-12-09 18:50 | NUR ---
RECEIVED PATIENT FROM CCU TRANSFER 67 YEARS OLD FEMALE TO ROOM 209 FIXED AND MADE COMFORTABLE PATIENT IS ALERT AND ORIENTED WANTS TO KNOW WHEN SHE WILL GO HOME REASSURED THAT SHE WILL BE DISCHARGED WHEN SHE IS READY ON O2 AT 2L/M BY NASAL CANULLA WITH NO SHORTNESS OF BREATH AT THIS TIME.LEFT ARM SWOLLEN ELEVATED ON THE PILLOW ON FIRST STEP MEGGAN WITH VELASCO CATH INTACT WITH YELLOW URINE 2 HEP LOCKS NOTED ONE IS A MIDLINE RIGHT UPPER ARM AND THE SECOND ONE IS A PERIPHERAL LINE ON HER RIGHT HAND TELE IS SR WILL ENDORSE TO ON COMING SHIFT FOR CONTINUATION OF CARE .
--- NOTE | 2017-12-09 20:00 | NUR ---
Patient visited by daughter. Patient Portuguese speaker. Instructed by daughter to call for translation. Patient noted with left arm swelling. No complaints of pain at this time. Site kept elevated. Patient on O2 at 2lpm. VS WNL. Endorsed that patient hasn't had BM. MOM given prior shift. Monitoring for efficacy. Call light in reach. Will continue to monitor.
[2017-12-09] MEDS: SIMVASTATIN 20 MG TABLET PO SCH (20:40)
[2017-12-09] MEDS: METOPROLOL TARTRATE 50 MG TABLET PO SCH (20:42)
[2017-12-09] MEDS: CEFTRIAXONE 1 G in IV DEXTROSE 5% 50 ML IV SCH (20:43)
[2017-12-09] MEDS ORDERED: METOPROLOL TARTRATE 25 MG TABLET PO SCH (21:00)
[2017-12-09] MEDS: INSULIN GLARGINE,HUM 300 UNITS/3 ML CARTRIDGE SQ SCH (21:00)
--- NOTE | 2017-12-09 22:00 | NUR ---
Addendum: BGL checked at 2100 reading 53mg/dl. Administered 8oz orange juice as ordered. Will recheck
--- NOTE | 2017-12-09 23:00 | NUR ---
Patient ambulated to restroom. Patient requested to take off non skid socks and apply lotion to feet. Patient resting comfortably in bed. Patient assisted to restroom twice. No BM noted. Patient increasingly anxious. Non pharmaceutical interventions such as distraction, reducing environmental stimuli utilized and are only partially effective. Call light in reach all times. Patient bed in low position. Bed alarm engaged. Will continue to monitor.
[2017-12-09] MEDS: MICAFUNGIN SODIUM 100 MG in IV NORMAL SALINE 100 ML IV SCH (23:44)
[2017-12-10] VITALS: BP 158/59
--- NOTE | 2017-12-10 | NUR ---
Blood glucose level 63mg/dl orange juice given and rechecked. Blood glucose 71mg/dl last reading. Monitor for s/s of hypoglycemia. Call light in reach. Patient in view from nursing station.
--- NOTE | 2017-12-10 01:00 | NUR ---
MOM not effective. PRN medication for constipation administered. Patient increasingly anxious. Medication for anxiety administered. Patient made comfortable and allowed to sleep.
[2017-12-10] MEDS: SENNOSIDES/DOCUSATE SODIUM TABLET PO PRN (01:20)
[2017-12-10] MEDS: ALPRAZOLAM 0.25 MG TABLET PO PRN ×3 (01:20→23:24)
--- NOTE | 2017-12-10 02:45 | NUR ---
Patient attempting to get out of bed. Assisted by charge nurse to seat patient in chair. Patient resting comfortably in chair. On 02 at 2lpm. Call light in reach. Frequent visual checks. Non skid socks placed back on patient.
[2017-12-10 04:04] VITALS: BP 152/37
[2017-12-10 06:27] LABS: BASOPHILS # (AUTO) 0.1 K/uL (0.0-8.0); BASOPHILS % (AUTO) 0.3 % (0.0-2.0); EOSINOPHILS # (AUTO) 0.1 K/uL (0.0-0.7); EOSINOPHILS % (AUTO) 0.5 % (0.0-7.0); HEMATOCRIT 28.8 % (31.2-41.9); HEMOGLOBIN 9.5 g/dL (10.9-14.3); LYMPHOCYTES # (AUTO) 1.4 K/uL (20.0-40.0); LYMPHOCYTES % (AUTO) 9.6 % (20.5-51.5); MEAN CORPUSCULAR HEMOGLOBIN 27.2 uug (24.7-32.8); MEAN CORPUSCULAR HGB CONC 33 g/dL (32.3-35.6); MEAN CORPUSCULAR VOLUME 82.7 fL (75.5-95.3); MONOCYTES # (AUTO) 1.1 K/uL (2.0-10.0); MONOCYTES % (AUTO) 7.3 % (0.0-11.0); NEUTROPHILS # (AUTO) 12.1 K/uL (1.8-8.9); NEUTROPHILS % (AUTO) 82.3 % (38.5-71.5); PLATELET COUNT (AUTO) 420 K/uL (179-408); RED BLOOD CELL COUNT(AUTO) 3.48 MIL/uL (3.63-4.92); WHITE BLOOD COUNT (AUTO) 14.7 K/uL (3.8-11.8)
[2017-12-10] MEDS: SUCRALFATE 1 G TABLET PO SCH ×4 (06:42→20:29)
[2017-12-10] MEDS: BLOOD SUGAR DIAGNOSTIC 1 EACH STRIP VI SCH ×4 (06:50→20:36)
[2017-12-10 06:52] LABS: BILIRUBIN,TOTAL 0.3 mg/dL (0.2-1.0); CREATININE 0.8 mg/dL (0.6-1.3); MAGNESIUM 1.8 mg/dL (1.8-2.4); PHOSPHOROUS 2.9 mg/dL (2.5-4.9); POTASSIUM 4.9 mmol/L (3.5-5.1); TOTAL PROTEIN, SERUM 5.7 g/dL (6.4-8.2)
--- NOTE | 2017-12-10 07:30 | NUR ---
Patient comfortably sitting in chair. No s/s of hypoglycemia.
--- NOTE | 2017-12-10 07:45 | NUR ---
RECEIVED PATIENT UP ON THE CHAIR IN HER ROOM RESTING WITH O2 AT 2L/M WITH NO SHORTNESS OF BREATH AT THIS TIME.VELASCO CATH TO GRAVITY DRAINAGE WITH NO HEMATURIA.MADE COMFORTABLE.
[2017-12-10] MEDS: METFORMIN HCL 500 MG TABLET PO SCH ×2 (08:40→17:45)
[2017-12-10] MEDS: LACTOBACILLUS RHAMNOSUS GG 1 EACH CAPSULE PO SCH ×2 (08:40→17:45)
[2017-12-10] MEDS: FUROSEMIDE 20 MG/2 ML VIAL IV SCH (08:40)
[2017-12-10] MEDS: AMIODARONE HCL 200 MG TABLET PO SCH ×2 (08:41→20:30)
[2017-12-10] MEDS: METOPROLOL TARTRATE 50 MG TABLET PO SCH ×2 (08:42→20:42)
[2017-12-10] MEDS: GABAPENTIN 100 MG CAPSULE PO SCH ×3 (08:42→17:46)
[2017-12-10] MEDS: FERROUS SULFATE 325 MG TABEC PO SCH (08:42)
[2017-12-10] MEDS: LIDOCAINE 5% PATCH TD SCH (08:43)
[2017-12-10] MEDS: MORPHINE SULFATE 4 MG/1 ML DISP.SYRIN IV PRN (08:43)
--- NOTE | 2017-12-10 08:43 | NUR ---
PATIENT IS RESTLESS WITH FACIAL GRIMACING BEING UNCOMFORTABLE MEDICATED WITH PAIN MEDICATION ORDERED AND MADE COMFORTABLE
[2017-12-10] MEDS: PANTOPRAZOLE SODIUM 40 MG TABLET.DR PO SCH ×2 (08:44→17:46)
[2017-12-10] MEDS: NORMAL SALINE FLUSH 10 ML DISP.SYRIN IV SCH ×2 (08:44→20:42)
[2017-12-10] MEDS: MIRALAX 17 GM POWD.PACK PO SCH (09:52)
--- NOTE | 2017-12-10 09:52 | NUR ---
DR UGALDE AWARE THAT PATIENT HAS NOT HAD A BOWEL MOVEMENT IN A FEW DAYS DESPITE MILK OF MAGNESIA GIVEN YESTERDAY MD AWARE WITH ORDER TO START MIRALAX.
--- NOTE | 2017-12-10 11:30 | NUR ---
PATIENT IS VERY ANXIOUS WAS PLACED ON THE COMMODE AND PATIENT GETTING UP AND UNSAFE AT THIS TIME AT RISKS FOR FALL ASSISTED BACK INTO BED MADE COMFORTABLE AND MEDICATED WITH XANAX ORDERED.WILL CONTINUE TO OBSERVE.
[2017-12-10] MEDS: INSULIN REGULAR, HUMAN 300 UNIT/3 ML VIAL SQ PRN ×2 (11:31→20:41)
[2017-12-10 11:59] VITALS: BP 124/46
--- NOTE | 2017-12-10 12:32 | NUR ---
REMAIN ANXIOUS WANTS TO GET IN AND OUT OF BED SHE IS CURRENTLY SITTING UP ON THE COMMODE DR UGALDE ORDERED SITTER THE DATA DELIVERABLES MANAGER NOTIFIED TO PROVIDE A SITTER
[2017-12-10] MEDS ORDERED: MAGNESIUM CITRATE 296 ML BOTTLE PO ONE (13:30)
--- NOTE | 2017-12-10 14:00 | NUR ---
PATIENT REMAINS AGITATED ATTEMPTING TO GET UP UNATTENDED ASSISTED TO THE COMMODE BUT SOON SHE SITS DOWN SHE WANTS TO GET UP AND AT RISKS FOR FALL PATIENT ASSISTED BACK INTO BED AND WILL CONTINUE TO OBSERVE.
[2017-12-10] MEDS ORDERED: GLYCERIN ADULT RECTAL SUPP EACH RC ONE (15:30)
--- NOTE | 2017-12-10 15:30 | NUR ---
SITTER IS AT THE BEDSIDE AND GLYCERINE SUPPOSITORY AND MAGNESSIUM CIT[place] GIVEN ORDERED MADE COMFORTABLE AND WILL CONTINUE TO OBSERVE.
[2017-12-10 15:31] VITALS: BP 126/58
[2017-12-10] MEDS: RIVAROXABAN 10 MG TABLET PO SCH (17:44)
[2017-12-10] MEDS: PROTEIN SUPPLEMENT (PROSTAT) 30 ML LIQUID PO SCH (17:47)
--- NOTE | 2017-12-10 18:31 | NUR ---
PATIENT IS RESTING WITH HER DAUGHTER AT THE BEDSIDE MADE COMFORTABLE WITH NO DISTRESS AT THIS TIME.
[2017-12-10 19:00] VITALS: BP_SYST 112; BP_SYST 124; BP_DIAS 34; BP_DIAS 35
--- NOTE | 2017-12-10 20:00 | NUR ---
Received patient laying comfortably in bed. No acute distress noted. daughter at bedside. A/O x 3 but forgetful. Mainly Burmese speaking but little Bahraini. Patient is on O2 2L NC. Noted midline on the right upper arm and right hand. Patent and intact. Noted abdominal fold redness, sacral redness and breast fold redness. ZGuard applied. Pena cath draining yellow and clear urine. Patient refused DVT and air mattress. Safety initiated. Call light within reach. Will closely monitor.
[2017-12-10] MEDS: CEFTRIAXONE 1 G in IV DEXTROSE 5% 50 ML IV SCH (20:26)
[2017-12-10] MEDS: SIMVASTATIN 20 MG TABLET PO SCH (20:29)
[2017-12-10] MEDS: INSULIN GLARGINE,HUM 300 UNITS/3 ML CARTRIDGE SQ SCH (20:38)
[2017-12-10] MEDS: ACETAMINOPHEN 325 MG TABLET PO PRN ×2 (21:11→21:32)
[2017-12-10] MEDS: MICAFUNGIN SODIUM 100 MG in IV NORMAL SALINE 100 ML IV SCH (23:25)
[2017-12-10 23:38] VITALS: BP 108/40
[2017-12-11] VITALS (7 sets, daily range): BP systolic 108–152; BP diastolic 39–67
--- NOTE | 2017-12-11 05:30 | NUR ---
Patient slept intermittently t/o shift. No acute distress noted. Patient remains A/O x 3 but forgetful. 1:1 remains at bedside. Calm and cooperative. Mainly Mongolian speaking but little Luxembourgish. Patient remains on O2 2L NC. Noted midline on the right upper arm and IV on the right hand. Patent and intact. Noted abdominal fold redness, sacral redness and breast fold redness. ZGuard applied. Repositioned Q2H. Pena cath draining yellow and clear urine. Patient refused air mattress to be inflated. OK urine output. BM x 1 green brown loose stool. Vital signs stable. Safety and comfort measures maintained t/o shift. All meds given as ordered. All needs met. Bed alarm on. Bed in low and locked position. Room is kept clutter free.
[2017-12-11 06:39] LABS: BASOPHILS # (AUTO) 0.1 K/uL (0.0-8.0); BASOPHILS % (AUTO) 0.8 % (0.0-2.0); EOSINOPHILS # (AUTO) 0.2 K/uL (0.0-0.7); EOSINOPHILS % (AUTO) 1.4 % (0.0-7.0); HEMATOCRIT 30.7 % (31.2-41.9); HEMOGLOBIN 10.1 g/dL (10.9-14.3); LYMPHOCYTES # (AUTO) 1.2 K/uL (20.0-40.0); LYMPHOCYTES % (AUTO) 10.6 % (20.5-51.5); MEAN CORPUSCULAR HEMOGLOBIN 27.3 uug (24.7-32.8); MEAN CORPUSCULAR HGB CONC 33 g/dL (32.3-35.6); NEUTROPHILS # (AUTO) 8.9 K/uL (1.8-8.9); NEUTROPHILS % (AUTO) 78.2 % (38.5-71.5); PLATELET COUNT (AUTO) 447 K/uL (179-408); RED BLOOD CELL COUNT(AUTO) 3.69 MIL/uL (3.63-4.92); WHITE BLOOD COUNT (AUTO) 11.4 K/uL (3.8-11.8)
[2017-12-11] MEDS: BLOOD SUGAR DIAGNOSTIC 1 EACH STRIP VI SCH ×4 (06:50→20:30)
[2017-12-11] MEDS: SUCRALFATE 1 G TABLET PO SCH ×4 (06:50→20:16)
[2017-12-11 06:55] LABS: BILIRUBIN,TOTAL 0.3 mg/dL (0.2-1.0); CREATININE 0.7 mg/dL (0.6-1.3); MAGNESIUM 1.7 mg/dL (1.8-2.4); POTASSIUM 4.4 mmol/L (3.5-5.1); TOTAL PROTEIN, SERUM 5.9 g/dL (6.4-8.2)
--- NOTE | 2017-12-11 08:00 | NUR ---
SEEN BY DR HUTCHISON NO NEW ORDERS. COMPLETE BED BATH GIVEN. NOTED PERIANAL AND ABDOMINAL FOLDS AREA STILL RED. WILL NOTIFY MD FOR TX ORDER
[2017-12-11] MEDS: METFORMIN HCL 500 MG TABLET PO SCH ×2 (08:09→17:10)
[2017-12-11] MEDS: FUROSEMIDE 20 MG/2 ML VIAL IV SCH (08:09)
[2017-12-11] MEDS: NORMAL SALINE FLUSH 10 ML DISP.SYRIN IV SCH ×2 (08:11→20:24)
[2017-12-11] MEDS: AMIODARONE HCL 200 MG TABLET PO SCH ×2 (08:11→20:16)
[2017-12-11] MEDS: FERROUS SULFATE 325 MG TABEC PO SCH (08:11)
[2017-12-11] MEDS: LACTOBACILLUS RHAMNOSUS GG 1 EACH CAPSULE PO SCH ×2 (08:11→17:09)
[2017-12-11] MEDS: LIDOCAINE 5% PATCH TD SCH (08:12)
[2017-12-11] MEDS: METOPROLOL TARTRATE 50 MG TABLET PO SCH ×2 (08:12→20:16)
[2017-12-11] MEDS: MIRALAX 17 GM POWD.PACK PO SCH (08:12)
[2017-12-11] MEDS: GABAPENTIN 100 MG CAPSULE PO SCH ×3 (08:12→17:09)
[2017-12-11] MEDS: PANTOPRAZOLE SODIUM 40 MG TABLET.DR PO SCH ×2 (08:12→17:09)
[2017-12-11] MEDS: PROTEIN SUPPLEMENT (PROSTAT) 30 ML LIQUID PO SCH ×3 (08:15→17:00)
[2017-12-11] MEDS ORDERED: MAGNESIUM SULFATE/D5W 100 ML IV ONE (10:45)
--- NOTE | 2017-12-11 11:00 | NUR ---
DR GLOVER IN MADE AWARE OF SKIN REDNESS WILL START NYSTATIN
[2017-12-11] MEDS: INSULIN REGULAR, HUMAN 300 UNIT/3 ML VIAL SQ PRN ×2 (11:36→20:36)
--- NOTE | 2017-12-11 12:00 | NUR ---
UP ON CHAIR FOR ADLS MIN ASSIST WITH PHYSICAL THERAPIST PATIENT TOLERATED WELL.
--- NOTE | 2017-12-11 16:00 | NUR ---
SEEN BY DR UGALDE SEE NOTES. RESTING COMFORTABLY IN BED. T-98.3
[2017-12-11] MEDS: RIVAROXABAN 10 MG TABLET PO SCH (17:10)
--- NOTE | 2017-12-11 18:05 | NUR ---
SEEN BY DR BRARIOS CHANGED STATUS TO MED/SURG. NO ACUTE PAIN OR DISTRESS
[2017-12-11] MEDS: SIMVASTATIN 20 MG TABLET PO SCH (20:16)
[2017-12-11] MEDS: CEFTRIAXONE 1 G in IV DEXTROSE 5% 50 ML IV SCH (20:27)
[2017-12-11] MEDS: INSULIN GLARGINE,HUM 300 UNITS/3 ML CARTRIDGE SQ SCH (20:35)
[2017-12-11] MEDS: NYSTATIN CREAM 30 GM TUBE TOP SCH (20:42)
[2017-12-12] MEDS: MICAFUNGIN SODIUM 100 MG in IV NORMAL SALINE 100 ML IV SCH ×2
--- NOTE | 2017-12-12 00:07 | NUR ---
pt daughter Maryuri is here. Patient ate the food daughter brought. Daughter requesting pt to be walked more often in the daytime.
[2017-12-12] MEDS: ACETAMINOPHEN 325 MG TABLET PO PRN ×3 (00:27→21:43)
--- NOTE | 2017-12-12 05:28 | NUR ---
Continues with 1:1 sitter for safety. Pt continues to mumble incoherently through the night. Patient slept 4 hours. Bed bath was administered last night. Daughter visited last night and fed patient some food. Patient refusing to eat snacks offered by staff.
[2017-12-12] MEDS: SUCRALFATE 1 G TABLET PO SCH ×4 (06:41→21:28)
[2017-12-12] MEDS: BLOOD SUGAR DIAGNOSTIC 1 EACH STRIP VI SCH ×4 (06:41→22:41)
[2017-12-12] MEDS: INSULIN REGULAR, HUMAN 300 UNIT/3 ML VIAL SQ PRN ×2 (07:44→22:43)
[2017-12-12] MEDS: LACTOBACILLUS RHAMNOSUS GG 1 EACH CAPSULE PO SCH ×2 (08:00→17:00)
[2017-12-12] MEDS: AMIODARONE HCL 200 MG TABLET PO SCH ×2 (08:01→21:27)
[2017-12-12] MEDS: PANTOPRAZOLE SODIUM 40 MG TABLET.DR PO SCH ×2 (08:01→17:00)
[2017-12-12] MEDS: METOPROLOL TARTRATE 50 MG TABLET PO SCH ×2 (08:01→21:28)
[2017-12-12] MEDS: METFORMIN HCL 500 MG TABLET PO SCH ×2 (08:01→18:00)
[2017-12-12] MEDS: GABAPENTIN 100 MG CAPSULE PO SCH ×3 (08:01→17:00)
[2017-12-12] MEDS: FUROSEMIDE 20 MG/2 ML VIAL IV SCH (08:02)
[2017-12-12] MEDS: FERROUS SULFATE 325 MG TABEC PO SCH (08:02)
[2017-12-12] MEDS: NORMAL SALINE FLUSH 10 ML DISP.SYRIN IV SCH ×2 (08:02→21:30)
[2017-12-12] MEDS: PROTEIN SUPPLEMENT (PROSTAT) 30 ML LIQUID PO SCH ×3 (08:03→17:00)
[2017-12-12] MEDS: LIDOCAINE 5% PATCH TD SCH (08:03)
[2017-12-12] MEDS: MIRALAX 17 GM POWD.PACK PO SCH (08:09)
[2017-12-12] MEDS: NYSTATIN CREAM 30 GM TUBE TOP SCH ×2 (08:16→21:29)
[2017-12-12 09:46] LABS: BASOPHILS # (AUTO) 0.1 K/uL (0.0-8.0); BASOPHILS % (AUTO) 0.6 % (0.0-2.0); EOSINOPHILS # (AUTO) 0.1 K/uL (0.0-0.7); EOSINOPHILS % (AUTO) 1.1 % (0.0-7.0); HEMATOCRIT 31.2 % (31.2-41.9); LYMPHOCYTES % (AUTO) 9.4 % (20.5-51.5); MEAN CORPUSCULAR HEMOGLOBIN 26.6 uug (24.7-32.8); MEAN CORPUSCULAR HGB CONC 32 g/dL (32.3-35.6); MEAN CORPUSCULAR VOLUME 83.2 fL (75.5-95.3); MONOCYTES % (AUTO) 9.1 % (0.0-11.0); NEUTROPHILS # (AUTO) 8.8 K/uL (1.8-8.9); NEUTROPHILS % (AUTO) 79.8 % (38.5-71.5); PLATELET COUNT (AUTO) 470 K/uL (179-408); RED BLOOD CELL COUNT(AUTO) 3.75 MIL/uL (3.63-4.92); WHITE BLOOD COUNT (AUTO) 11.1 K/uL (3.8-11.8)
[2017-12-12 09:51] LABS: CREATININE 0.9 mg/dL (0.6-1.3); POTASSIUM 4.2 mmol/L (3.5-5.1)
[2017-12-12 09:56] LABS: BILIRUBIN,TOTAL 0.3 mg/dL (0.2-1.0); MAGNESIUM 1.5 mg/dL (1.8-2.4); TOTAL PROTEIN, SERUM 5.8 g/dL (6.4-8.2)
[2017-12-12 11:23] VITALS: BP 140/49
[2017-12-12 15:42] VITALS: BP 127/54
[2017-12-12] MEDS ORDERED: FLUCONAZOLE 200 MG/NS 100ML IV 100 MG in PREMIXED 1 EACH IV SCH (18:00)
[2017-12-12] MEDS ORDERED: RIVAROXABAN 15 MG TABLET PO SCH (18:00)
--- NOTE | 2017-12-12 18:27 | NUR ---
PT IN ROOM WITH NO SIGNS OF RESPIRATORY DISTRESS. PT REFUSING EVENING MEDICATIONS STATING THAT I AM TRICKING HER TO STAY. PT IS UPSET THAT SHE IS NOT ABLE TO GO HOME TODAY. PT IS SELECTIVE IN THE FOOD SHE IS EATING. PT IS POSITIONED IN HIGH FOWLERS POSITION TO HELP HER BREATH EASIER. CONTINUE TO MONITOR PT.
[2017-12-12 19:00] VITALS: BP 152/55
[2017-12-12] MEDS: CEFTRIAXONE 1 G in IV DEXTROSE 5% 50 ML IV SCH (20:39)
[2017-12-12] MEDS: SIMVASTATIN 20 MG TABLET PO SCH (21:28)
[2017-12-12] MEDS: NYSTATIN POWDER 15 GM BOTTLE TOP SCH (21:48)
[2017-12-12] MEDS: INSULIN GLARGINE,HUM 300 UNITS/3 ML CARTRIDGE SQ SCH (22:42)
[2017-12-13 04:00] VITALS: BP 136/54
[2017-12-13 04:08] VITALS: BP 136/54
[2017-12-13 06:24] LABS: BASOPHILS # (AUTO) 0.1 K/uL (0.0-8.0); BASOPHILS % (AUTO) 0.5 % (0.0-2.0); EOSINOPHILS # (AUTO) 0.1 K/uL (0.0-0.7); EOSINOPHILS % (AUTO) 0.9 % (0.0-7.0); HEMATOCRIT 35.7 % (31.2-41.9); HEMOGLOBIN 11.4 g/dL (10.9-14.3); LYMPHOCYTES % (AUTO) 9.5 % (20.5-51.5); MEAN CORPUSCULAR HEMOGLOBIN 26.8 uug (24.7-32.8); MEAN CORPUSCULAR HGB CONC 32 g/dL (32.3-35.6); MEAN CORPUSCULAR VOLUME 83.6 fL (75.5-95.3); MONOCYTES # (AUTO) 0.8 K/uL (2.0-10.0); MONOCYTES % (AUTO) 7.3 % (0.0-11.0); NEUTROPHILS # (AUTO) 8.8 K/uL (1.8-8.9); NEUTROPHILS % (AUTO) 81.8 % (38.5-71.5); PLATELET COUNT (AUTO) 547 K/uL (179-408); RED BLOOD CELL COUNT(AUTO) 4.27 MIL/uL (3.63-4.92); WHITE BLOOD COUNT (AUTO) 10.7 K/uL (3.8-11.8)
[2017-12-13] MEDS: BLOOD SUGAR DIAGNOSTIC 1 EACH STRIP VI SCH ×4 (07:08→21:42)
--- NOTE | 2017-12-13 07:50 | NUR ---
Resident sitting on welchair, no signs of acute respiratory distress, no sob, no cough, family at bedside. Continues with 1: 1 sitter for safety. daughter visited last night and fed resident with food, call light within reach.
[2017-12-13] MEDS: METOPROLOL TARTRATE 50 MG TABLET PO SCH ×2 (08:05→21:29)
[2017-12-13] MEDS: METFORMIN HCL 500 MG TABLET PO SCH ×2 (08:05→17:01)
[2017-12-13] MEDS: PANTOPRAZOLE SODIUM 40 MG TABLET.DR PO SCH ×2 (08:05→16:49)
[2017-12-13] MEDS: GABAPENTIN 100 MG CAPSULE PO SCH ×3 (08:05→16:49)
[2017-12-13] MEDS: LACTOBACILLUS RHAMNOSUS GG 1 EACH CAPSULE PO SCH ×2 (08:06→16:49)
[2017-12-13] MEDS: FERROUS SULFATE 325 MG TABEC PO SCH (08:06)
[2017-12-13] MEDS: AMIODARONE HCL 200 MG TABLET PO SCH ×2 (08:06→21:28)
[2017-12-13] MEDS: NORMAL SALINE FLUSH 10 ML DISP.SYRIN IV SCH ×2 (08:06→21:30)
[2017-12-13] MEDS: FUROSEMIDE 20 MG/2 ML VIAL IV SCH (08:06)
[2017-12-13] MEDS: SUCRALFATE 1 G TABLET PO SCH ×4 (08:09→21:28)
[2017-12-13] MEDS: PROTEIN SUPPLEMENT (PROSTAT) 30 ML LIQUID PO SCH ×3 (08:09→17:00)
[2017-12-13] MEDS: LIDOCAINE 5% PATCH TD SCH (08:10)
[2017-12-13] MEDS: NYSTATIN CREAM 30 GM TUBE TOP SCH ×2 (08:11→21:30)
[2017-12-13] MEDS: MIRALAX 17 GM POWD.PACK PO SCH (08:11)
[2017-12-13] MEDS: NYSTATIN POWDER 15 GM BOTTLE TOP SCH ×2 (08:12→21:30)
[2017-12-13 08:26] VITALS: BP 130/54
[2017-12-13 11:30] VITALS: BP 111/54
[2017-12-13] MEDS: INSULIN REGULAR, HUMAN 300 UNIT/3 ML VIAL SQ PRN ×2 (12:05→16:57)
[2017-12-13] MEDS ORDERED: LIDOCAINE 2%-EPI 1:100,000 20 ML VIAL TP ONE (13:15)
--- NOTE | 2017-12-13 13:35 | NUR ---
Patient s/p thoracentesis on the left lung. Patient tolerated procedure well, is alert, in no distress, no SOB. Specimen sent to the lab/pathology. Addendum: 12/13/17 at 1356 by MORRO WIN RN Consent placed in patient's chart.
--- NOTE | 2017-12-13 15:15 | NUR ---
Returned call to daughter Maryuri. Daughter upset because RN stated not able to discuss patient's information over the phone due to HIPPA. Patient's daughter verbalized statements with threat "I am the person who will get you fired". Politely explained that RN protecting patient's information.
[2017-12-13 15:22] VITALS: BP 134/48
--- NOTE | 2017-12-13 15:23 | NUR ---
Patient discharge to home with home health. Removed rawls cath, tube intact, 8cc NS taken out, urine output 700cc, yellow color. Midline on right upper arm removed, tube intact. Patient tolerated procedure well, in no distress.
[2017-12-13] MEDS: ACETAMINOPHEN 325 MG TABLET PO PRN (15:42)
--- NOTE | 2017-12-13 17:00 | NUR ---
Patient's family/daughter unable to take patient home today. Per daughter, no one is available at home to care for patient. [facility] as alternative is unable to admit patient.
[2017-12-13 20:00] VITALS: BP 108/45
[2017-12-13] MEDS: INSULIN GLARGINE,HUM 300 UNITS/3 ML CARTRIDGE SQ SCH (21:00)
[2017-12-13] MEDS: SIMVASTATIN 20 MG TABLET PO SCH (21:29)
[2017-12-14 04:53] VITALS: BP 124/56
--- NOTE | 2017-12-14 06:00 | NUR ---
pt alert,oriented,ambulates to bathroom with 3 liters oxygen,denies any pain,had 2 bm overnight,daughter came and brought home food and ate well, refused lantus last night with bs 110, daughter aware.voiding,daughter came but didn't discuss discharge and wanting to have her mother send to [facility] rehab, daughter unable to care for pt.pt slept on and off in the bed and chair, no acute distress.coughing dry and reuesting cough medication but non ordered,will endorse to next shift.
[2017-12-14] MEDS: SUCRALFATE 1 G TABLET PO SCH ×3 (06:44→16:03)
[2017-12-14] MEDS: PANTOPRAZOLE SODIUM 40 MG TABLET.DR PO SCH ×2 (06:44→16:03)
[2017-12-14] MEDS: BLOOD SUGAR DIAGNOSTIC 1 EACH STRIP VI SCH ×3 (07:05→16:07)
[2017-12-14] MEDS: INSULIN REGULAR, HUMAN 300 UNIT/3 ML VIAL SQ PRN (07:59)
[2017-12-14] MEDS: METFORMIN HCL 500 MG TABLET PO SCH (08:00)
[2017-12-14] MEDS: PROTEIN SUPPLEMENT (PROSTAT) 30 ML LIQUID PO SCH ×3 (08:01→16:04)
[2017-12-14] MEDS: FERROUS SULFATE 325 MG TABEC PO SCH (08:01)
[2017-12-14] MEDS: GABAPENTIN 100 MG CAPSULE PO SCH ×3 (08:01→16:03)
[2017-12-14] MEDS: LACTOBACILLUS RHAMNOSUS GG 1 EACH CAPSULE PO SCH ×2 (08:01→16:03)
[2017-12-14] MEDS: NYSTATIN POWDER 15 GM BOTTLE TOP SCH (08:03)
[2017-12-14] MEDS: LIDOCAINE 5% PATCH TD SCH (08:03)
[2017-12-14] MEDS: MIRALAX 17 GM POWD.PACK PO SCH (08:03)
[2017-12-14] MEDS: NYSTATIN CREAM 30 GM TUBE TOP SCH (08:04)
[2017-12-14] MEDS: AMIODARONE HCL 200 MG TABLET PO SCH (08:07)
[2017-12-14] MEDS: METOPROLOL TARTRATE 50 MG TABLET PO SCH (08:08)
[2017-12-14] MEDS: NORMAL SALINE FLUSH 10 ML DISP.SYRIN IV SCH (08:09)
[2017-12-14] MEDS ORDERED: FUROSEMIDE 20 MG TABLET PO SCH (10:00)
[2017-12-14] MEDS ORDERED: GUAIFENESIN/CODEINE 5 ML LIQUID UDC PO PRN (10:00)
--- NOTE | 2017-12-14 11:00 | NUR ---
Patient on 1L/NC saturating 96%. Titrate per MD's order.
[2017-12-14 11:47] VITALS: BP 113/50
--- NOTE | 2017-12-14 12:12 | NUR ---
Patient off oxygen, on room air, saturating at 92%-93%, tolerating well, no SOB. Patient still coughing, non productive, PRN medication administered as ordered.
[2017-12-14] MEDS: ALPRAZOLAM 0.25 MG TABLET PO PRN (13:15)
[2017-12-14 16:17] VITALS: BP 119/50
--- NOTE | 2017-12-14 16:50 | NUR ---
Patient discharge to home with home health. Transported by ambulance via gurney. Patient is alert, in no distress, transported with oxygen 2L/nc. Discharge teachings/instructions provided to son/family. Belongings with son. Patient's last accucheck 199 mg/dL, no insulin sliding scale administered. Informed son regarding updated list of medication administered.
--- NOTE | 2017-12-15 15:57 | NUR ---
Discharge Note for 12/14/17: Had been in contact with the patient's daughter about her discharge plan. Informed her that a bed is available at [facility] [ ] per Bertha [admissions] but she insisted that she would like to try for the patient to return back home first. She is aware that if they are unable to manage her care at home they can call [facility] and transfer her straight there. Her daughter, Maryuri, confirmed that they have received all of the patient's medication from Friday and will [facility] [ ; [facility] be at the house today. She requested for an ambulance to pick her up at around 4:30 p.m. and was very thankful for the help. Her RN, Coby, is aware of her discharge plan.
== END 2017-12-14 16:50 | disposition home health service (06) | DRG 177 ==
LOC: MED 16:17 → TELE 12-05 19:05 → CCU 12-05 19:23 → TELE 12-09 18:50 → MED 12-11 18:50
PROVIDERS: ADMIT Nurse Practitioner Acute Care; ATTEND Nurse Practitioner Acute Care
PROC: 0W993ZZ Drainage of Right Pleural Cavity, Percutaneous Approach (ICD-10-PCS; principal; 2017-12-05)
PROC: 0W9B3ZX Drainage of Left Pleural Cavity, Percutaneous Approach, Diagnostic (ICD-10-PCS; 2017-12-06)
PROC: 05H533Z Insertion of Infusion Device into Right Subclavian Vein, Percutaneous Approach (ICD-10-PCS; 2017-12-08)
PROC: 0W9B30Z Drainage of Left Pleural Cavity with Drainage Device, Percutaneous Approach (ICD-10-PCS; 2017-12-13)
DX: J69.0 Pneumonitis due to inhalation of food and vomit (principal); J96.01 Acute respiratory failure with hypoxia; E43 Unspecified severe protein-calorie malnutrition; I50.33 Acute on chronic diastolic (congestive) heart failure; J91.8 Pleural effusion in other conditions classified elsewhere; B37.49 Other urogenital candidiasis; D68.59 Other primary thrombophilia; I31.3 Pericardial effusion (noninflammatory); I48.92 Unspecified atrial flutter; I45.89 Other specified conduction disorders; J98.11 Atelectasis; I48.0 Paroxysmal atrial fibrillation; E11.65 Type 2 diabetes mellitus with hyperglycemia; E11.51 Type 2 diabetes mellitus with diabetic peripheral angiopathy without gangrene; Z79.4 Long term (current) use of insulin; E78.5 Hyperlipidemia, unspecified; I11.0 Hypertensive heart disease with heart failure; Z74.09 Other reduced mobility; I25.10 Atherosclerotic heart disease of native coronary artery without angina pectoris; Z95.1 Presence of aortocoronary bypass graft; F32.9 Major depressive disorder, single episode, unspecified; K25.9 Gastric ulcer, unspecified as acute or chronic, without hemorrhage or perforation; R33.9 Retention of urine, unspecified; F03.90 Unspecified dementia, unspecified severity, without behavioral disturbance, psychotic disturbance, mood disturbance, and anxiety; F41.9 Anxiety disorder, unspecified; I70.0 Atherosclerosis of aorta; E66.9 Obesity, unspecified; Z68.37 Body mass index [BMI] 37.0-37.9, adult; D63.8 Anemia in other chronic diseases classified elsewhere; E83.42 Hypomagnesemia
CPT/HCPCS: 32555; 36415; 36600; 70030-TC; 71045; 83605; 83615; 83735; 83986; 84100; 84155; 84157; 85025; 85610; 85730; 86850; 86900; 86901; 87070; 87086; 87205; 93005; 93307; 97110; 97116; 97530; A4663; J0282; J0696; J1160; J1642; J1644; J1815; J1940; J1956; J2248; J2270; J2405; J3475; J3490; J7040; J7050; J7060